=== PATIENT | female | born 1935 | race Caucasian/White ===

== ENCOUNTER 2016-11-23 02:58 | Emergency (ER) | payer MEDICARE, BC ==
[~2016-11-23] VITALS: Ht 157.5 cm; Wt 94.6 kg
[~2016-11-23 02:58] MED LIST: ASPI81TA82 PO; BIOT10004 PO; CALC500T19 PO; CEPH500C3 PO; COEN400C PO; FURO20TA PO; LORTA5 PO; MAGN400C2 PO; NEBI5 PO; NORV5TAB PO; OYST500T71 PO; POTA20IN3 PO; ROSU40 PO; VITA-83 PO
[2016-11-23 03:05] VITALS: BP 201/95; PULSE 56; RESP 18; TEMP 97.6; O2SAT 93
[2016-11-23 03:17] VITALS: BP 201/96; PULSE 62; RESP 18; TEMP 97.9; O2SAT 94
[2016-11-23] MEDS ORDERED: FURO1TAB62 PO (03:32)
[2016-11-23] MEDS ORDERED: ROSU5 PO (03:32)
[2016-11-23] MEDS ORDERED: BYST5TAB2 PO (03:32)
[2016-11-23] MEDS ORDERED: ASPI81CH CHEW (03:32)
[2016-11-23] MEDS ORDERED: POTA-163 PO (03:32)
[2016-11-23] MEDS ORDERED: AMLO5TAB2 PO (03:32)
[2016-11-23] MEDS ORDERED: METF500T PO (03:32)
--- NOTE | 2016-11-23 03:32 | PD ---
HPI Chief Complaint: Hypertension Time Seen by Provider: 03:13 Travel History International Travel<30 days: No Contact w/Intl Traveler<30days: No Traveled to known affect area: No History of Present Illness HPI The patient is an 81-year-old female that complains of an elevated blood pressure tonight. It is totally asymptomatic except for a mild discomfort in the back of her head. She denies any chest pain, shortness of breath, fever. She states tonight, before this happened, that she was drinking large amounts of Gatorade. She states she wanted to drink Gatorade because she wanted to increase her potassium. Because she was drinking large amounts of fluids, she did have frequency and urgency. She denies specifically any dysuria. She denies any cough or abdominal pain. She is a Medicare a and B patient of Dr. Betito Hallman. PFSH Past Medical History Hx Anticoagulant Therapy: Yes Arthritis: Yes Blood Disorders: No Cancer: Yes (LEFT BREAST) Cardiovascular Problems: Yes High Cholesterol: Yes Chemotherapy: Yes () Cerebrovascular Accident: Yes (TIA) Diabetes: Yes Patient Takes Glucophage: Yes Diminished Hearing: No Endocrine: No Gastrointestinal Disorders: No GERD: No Genitourinary: Yes Hypertension: Yes Immune Disorder: No Neurologic: Yes Psychiatric: No Tetanus Vaccination: < 5 Years Influenza Vaccination: Yes ?: Not Menopausal: Yes : 3 Para: 1 Miscarriage: 2 Past Surgical History Abdominal Surgery: No Cardiac Surgery: Yes Coronary Stent: No Ear Surgery: No Endocrine Surgery: No Eye Surgery: Yes (CATARACTS) Genitourinary Surgery: No Gynecologic Surgery: No Joint Replacement: Yes (bilat knee) Mastectomy: Yes (left) Neurologic Surgery: Yes (TIA,04) Oral Surgery: Yes (CAPS) Tonsillectomy: Yes Other Surgery: Yes Social History Alcohol Use: No Tobacco Use: No Substance Use: No Allergies-Medications (Allergen,Severity, Reaction): Coded Allergies: No Known Allergies (Verified , 11/23/16) Reported Meds & Prescriptions Reported Meds & Active Scripts Active Reported Metformin (Metformin HCl) 500 Mg Tab 500 Mg PO DAILY With a meal Aspirin 81 Mg Chew 81 Mg CHEW DAILY Crestor (Rosuvastatin Calcium) 5 Mg Tab 5 Mg PO EVERY OTHER DAY Lasix (Furosemide) 20 Mg Tab 20 Mg PO DAILY Potassium Chloride ER (Potassium Chloride) 20 Meq Tab 20 Meq PO DAILY Bystolic (Nebivolol) 5 Mg Tab 5 Mg PO DAILY Amlodipine (Amlodipine Besylate) 5 Mg Tab 5 Mg PO DAILY Review of Systems Except as stated in HPI: all other systems reviewed are Neg Physical Exam Narrative GENERAL: The patient is alert, oriented 3 in no apparent distress. Her vital signs show blood pressure 201/95 but otherwise normal. SKIN: Focused skin assessment warm/dry. HEAD: Atraumatic. Normocephalic. EYES: Pupils equal and round. No scleral icterus. No injection or drainage. ENT: No nasal bleeding or discharge. Mucous membranes pink and moist. NECK: Trachea midline. No JVD. CARDIOVASCULAR: Regular rate and rhythm. No murmur appreciated. RESPIRATORY: No accessory muscle use. Clear to auscultation. Breath sounds equal bilaterally. GASTROINTESTINAL: Abdomen soft, non-tender, nondistended. Hepatic and splenic margins not palpable. MUSCULOSKELETAL: No obvious deformities. No clubbing. No cyanosis. No edema. NEUROLOGICAL: Awake and alert. No obvious cranial nerve deficits. Motor grossly within normal limits. Normal speech. PSYCHIATRIC: Appropriate mood and affect; insight and judgment normal. Data Data Last Documented VS Vital Signs Date Time Temp Pulse Resp B/P (MAP) Pulse Ox O2 Delivery O2 Flow Rate FiO2 11/23/16 04:38 60 18 170/88 (115) 93 Room Air 11/23/16 03:17 97.9 Orders Orders Electrocardiogram (11/23/16 03:21) Complete Blood Count With Diff (11/23/16 03:21) Comprehensive Metabolic Panel (11/23/16 03:21) Urinalysis - C+S If Indicated (11/23/16 03:21) Chest, Pa & Lat (11/23/16 03:21) Labs Laboratory Tests Test 11/23/16 03:45 11/23/16 04:00 Urine Color YELLOW Urine Turbidity CLEAR Urine pH 6.0 Urine Specific [place] 1.008 Urine Protein NEG mg/dL Urine Glucose (UA) NEG mg/dL Urine Ketones NEG mg/dL Urine Occult Blood NEG Urine Nitrite NEG Urine Bilirubin NEG Urine Leukocyte Esterase NEG Urine RBC 0-2 /hpf Urine WBC 0-2 /hpf Urine Squamous Epithelial Cells 6-8 /hpf Urine Bacteria NONE /hpf Microscopic Urinalysis Comment CULT NOT INDICATED White Blood Count 7.4 TH/MM3 Red Blood Count 4.55 MIL/MM3 Hemoglobin 14.1 GM/DL Hematocrit 41.9 % Mean Corpuscular Volume 92.1 FL Mean Corpuscular Hemoglobin 31.1 PG Mean Corpuscular Hemoglobin Concent 33.8 % Red Cell Distribution Width 12.6 % Platelet Count 205 TH/MM3 Mean Platelet Volume 7.9 FL Neutrophils (%) (Auto) 37.3 % Lymphocytes (%) (Auto) 45.9 % Monocytes (%) (Auto) 15.3 % Eosinophils (%) (Auto) 0.8 % Basophils (%) (Auto) 0.7 % Neutrophils # (Auto) 2.7 TH/MM3 Lymphocytes # (Auto) 3.3 TH/MM3 Monocytes # (Auto) 1.1 TH/MM3 Eosinophils # (Auto) 0.1 TH/MM3 Basophils # (Auto) 0.1 TH/MM3 CBC Comment DIFF FINAL Differential Comment Blood Urea Nitrogen 24 MG/DL Creatinine 0.97 MG/DL Random Glucose 92 MG/DL Total Protein 8.0 GM/DL Albumin 3.6 GM/DL Calcium Level 9.2 MG/DL Alkaline Phosphatase 63 U/L Aspartate Amino Transf (AST/SGOT) 33 U/L Alanine Aminotransferase (ALT/SGPT) 27 U/L Total Bilirubin 0.3 MG/DL Sodium Level 138 MEQ/L Potassium Level 3.9 MEQ/L Chloride Level 102 MEQ/L Carbon Dioxide Level 26.6 MEQ/L Anion Gap 9 MEQ/L Estimat Glomerular Filtration Rate 55 ML/MIN MDM Medical Decision Making Medical Screen Exam Complete: Yes Emergency Medical Condition: Yes Medical Record Reviewed: Yes Interpretation(s) EKG shows a sinus bradycardia no acute ST elevation or depression is present. The CBC is normal. The urinalysis is normal and culture is not indicated. The complete metabolic profile shows a BUN of 24, GFR 55 but is otherwise normal. The chest x-ray shows no acute change. There is stable elevation of the right hemidiaphragm and minimal atelectasis/scarring in the left lingula. Lungs are otherwise clear. There is a left mastectomy with axillary maximino dissection. Differential Diagnosis Acute coronary syndrome, electrolyte disorder, anemia, congestive heart failure- unlikely, cardiac dysrhythmia, hypertension poor control, hypertensive urgency Narrative Course It is now 44 7 AM and the blood pressure is 170/88. The blood pressure came down to this number with out any medications at all other than the indication she took at home. Diagnosis Primary Impression: Hypertension, poor control Additional Instructions: Follow-up with Dr. Hallman Thursday regarding your blood pressure. He should be the one to adjust her medication. Disposition: DISCHARGE HOME Condition: Stable Kael Matt MD Nov 23, 2016 03:32
[2016-11-23 04:06] LABS: AUTOMATED NEUTROPHIL # 2.7 TH/MM3 (1.8-7.7); BASOPHIL # 0.1 TH/MM3 (0-0.2); BASOPHIL % 0.7 % (0.0-2.0); EOSINOPHIL # 0.1 TH/MM3 (0-0.4); EOSINOPHIL % 0.8 % (0.0-4.0); HEMATOCRIT 41.9 % (35.0-46.0); HEMO FLAGS DIFF FINAL; LYMPH % 45.9 % (9.0-44.0); LYMPHOCYTE # 3.3 TH/MM3 (1.0-4.8); MEAN CELL VOLUME 92.1 FL (80.0-100.0); MEAN CORPUSCULAR HEMOGLOBIN 31.1 PG (27.0-34.0); MEAN CORPUSCULAR HGB CONC 33.8 % (32.0-36.0); MONO % 15.3 % (0.0-8.0); NEUT % 37.3 % (16.0-70.0); PLATELET COUNT 205 TH/MM3 (150-450); RED BLOOD COUNT 4.55 MIL/MM3 (4.00-5.30); RED CELL DISTRIBUTION WIDTH 12.6 % (11.6-17.2); WHITE BLOOD COUNT 7.4 TH/MM3 (4.0-11.0)
[2016-11-23 04:07] LABS: BLOOD, URINE NEG (NEG); GLUCOSE,URINE NEG (NEG); KETONE, URINE NEG (NEG); NITRITE,URINE NEG (NEG)
[2016-11-23 04:12] LABS: URINE COLOR YELLOW (YELLW/STRAW)
[2016-11-23 04:13] LABS: COMMENT (UR) CULT NOT INDICATED; CULTURE IF INDICATED CULT NOT INDICATED; RBC, URINE 0-2 /hpf (0-3); WBC, URINE 0-2 /hpf (0-5)
[2016-11-23 04:14] LABS: CHLORIDE 102 MEQ/L (98-107); POTASSIUM 3.9 MEQ/L (3.5-5.1); SODIUM (NA) 138 MEQ/L (136-145)
--- NOTE | 2016-11-23 04:16 | RADRPT ---
EXAM DATE/TIME: 11/23/2016 03:30 [facility] COMPARISON: CHEST PA & LAT, October 01, 2011, 13:22. INDICATIONS : Palpitations. MEDICAL HISTORY : Carcinoma, breast. Hypercholesterolemia. Hypertension. TIA, Diabetes, Arthritis SURGICAL HISTORY : Total knee replacement, left. Total knee replacement, right. Mastectomy, left. Tonsillectomy, Catarac t surgery ENCOUNTER: Initial ACUITY: 1 day PAIN SCORE: 3/10 LOCATION: Bilateral chest FINDINGS: PA and lateral views of the chest demonstrate stable elevation of the right hemidiaphragm. Minimal at electatic changes or scarring in the left lingula. Lungs are otherwise clear. Heart size is normal de generative spurring of the dorsal spine with mild levoscoliosis of the same. Left mastectomy with axi llary maximino dissection. CONCLUSION: 1. Stable elevation of the right hemidiaphragm. Minimal atelectasis/scarring in the left lingula. Toan gs otherwise clear. 2. Left mastectomy with axillary maximino dissection. Alban Olmos MD on November 23, 2016 at 4:12 Board Certified Radiologist. This report was verified electronically.
[2016-11-23 04:18] LABS: ANION GAP 9 MEQ/L (5-15); BICARBONATE 26.6 MEQ/L (21.0-32.0); BLOOD UREA NITROGEN 24 MG/DL (7-18)
[2016-11-23 04:21] LABS: ALT (GPT) 27 U/L (10-53); AST (GOT) 33 U/L (15-37); GLOMERULAR FILTRATION RATE 55 ML/MIN (>89)
[2016-11-23 04:22] LABS: TOTAL BILIRUBIN ADULT 0.3 MG/DL (0.2-1.0)
[2016-11-23 04:23] LABS: ALKALINE PHOSPHATASE 63 U/L (45-117)
[2016-11-23 04:38] VITALS: BP 170/88; PULSE 60; RESP 18; O2SAT 93
[2016-11-23] MEDS ORDERED: hydrALAZINE HCL 20 MG/ML VIAL IV PUSH ONE (05:00)
[2016-11-23 05:17] VITALS: BP 141/73; PULSE 55; RESP 18; O2SAT 93
--- NOTE | 2016-11-23 12:46 | EKG ---
Date Performed: 11/23/2016 Time Performed: 03:33:28 PTAGE: 81 years EKG: SINUS BRADYCARDIA WITH SINUS ARRHYTHMIA ABNORMAL ECG PREVIOUS TRACING : 10/01/2011 13.08 No significant change from previous tracing noted. DOCTOR: Gilbert Agarwal Interpretating Date/Time 11/23/2016 12:46:00
== END 2016-11-23 05:25 | disposition home or self-care (01) ==
LOC: PHED 02:58
DX: I10 Essential (primary) hypertension (principal); E11.9 Type 2 diabetes mellitus without complications; Z79.84 Long term (current) use of oral hypoglycemic drugs
CPT/HCPCS: 71020; 80053; 81001; 85025; 93005; 96374; 99285; J0360

== ENCOUNTER 2016-12-12 10:13 | Observation (INO) | payer MEDICARE, BC ==
[~2016-12-12] VITALS: Ht 160 cm; Wt 92.0 kg
[2016-12-12] VITALS (7 sets, daily range): BP systolic 103–174; BP diastolic 60–81; PULSE 50–68; RESP 16–21; TEMP 97.5–98.2; O2SAT 93–96
[~2016-12-12 10:13] MED LIST changes: +AMLO5TAB2 PO; +ASPI81CH CHEW; -ASPI81TA82 PO; -BIOT10004 PO; +BYST5TAB2 PO; -CALC500T19 PO; -CEPH500C3 PO; -COEN400C PO; +FURO1TAB62 PO; -FURO20TA PO; -LORTA5 PO; -MAGN400C2 PO; +METF500T PO; -NEBI5 PO; -NORV5TAB PO; -OYST500T71 PO; +POTA-163 PO; -POTA20IN3 PO; -ROSU40 PO; +ROSU5 PO; -VITA-83 PO
[2016-12-12] MEDS ORDERED: IOHEXOL 350 MG/ML 10 ML VIAL (for RAD DIAG) IVCONTRAST ONE (10:14)
--- NOTE | 2016-12-12 10:37 | PD ---
HPI Chief Complaint: Syncope/Near-Syncope Time Seen by Provider: 10:37 Travel History International Travel<30 days: No Contact w/Intl Traveler<30days: No Traveled to known affect area: No History of Present Illness HPI 81-year-old female came to the emergency room with history of near syncopal episode this morning. Patient's daughter is here with her. Patient has not been feeling too good for past 3-4 days as per her. She was taken to [facility] emergency room few days ago for hypertension where her medications and doses were adjusted. She was discharged home and she has not been doing too great since then as per the daughter. For the past 3-4 days she has been complaining that she is having some choking sensation around her neck. During those occasions daughter says she that she noticed her color was wagoner. Today they were [place] the [place] when she started getting lightheaded and felt like she was going to pass out. She did not have any chest pain. Vital signs were stable although patient says that she usually runs in blood pressure more than 150s and here her blood pressure was 110 to 130s. Patient says that she did not completely pass out. FOR[facility]LY [facility] Past Medical History Narrative Medical List of her past medical, surgical, social and family history is reviewed from the nursing note. Hx Anticoagulant Therapy: Yes Arthritis: Yes Blood Disorders: No Cancer: Yes (LEFT BREAST) Cardiovascular Problems: Yes High Cholesterol: Yes Chemotherapy: Yes () Cerebrovascular Accident: Yes (TIA) Diabetes: Yes Patient Takes Glucophage: No Diminished Hearing: No Endocrine: No Gastrointestinal Disorders: No GERD: No Genitourinary: Yes Hypertension: Yes Immune Disorder: No Neurologic: Yes Psychiatric: No Influenza Vaccination: Yes Menopausal: Yes : 3 Para: 1 Miscarriage: 2 Past Surgical History Abdominal Surgery: No Cardiac Surgery: Yes Coronary Stent: No Ear Surgery: No Endocrine Surgery: No Eye Surgery: Yes (CATARACTS) Genitourinary Surgery: No Gynecologic Surgery: No Joint Replacement: Yes (bilat knee) Mastectomy: Yes (left) Neurologic Surgery: Yes (TIA,04) Oral Surgery: Yes (CAPS) Tonsillectomy: Yes Other Surgery: Yes Social History Alcohol Use: Yes (special occasions) Tobacco Use: No Substance Use: No Allergies-Medications (Allergen,Severity, Reaction): Coded Allergies: No Known Allergies (Verified , 12/12/16) Comments No known drug allergies. Reported Meds & Prescriptions Reported Meds & Active Scripts Active Reported Aspirin 81 Mg Chew 81 Mg CHEW DAILY Potassium Chloride ER (Potassium Chloride) 20 Meq Tab 20 Meq PO DAILY Bystolic (Nebivolol) 5 Mg Tab 5 Mg PO DAILY Amlodipine (Amlodipine Besylate) 5 Mg Tab 5 Mg PO DAILY Narrative Medication List of her home medications reviewed from the nursing note. Review of Systems Except as stated in HPI: all other systems reviewed are Neg Physical Exam Narrative GENERAL: Awake, alert, obese, anxious SKIN: Focused skin assessment warm/dry. HEAD: Atraumatic. Normocephalic. EYES: Pupils equal and round. No scleral icterus. No injection or drainage. ENT: No nasal bleeding or discharge. Dry mucous membrane NECK: Trachea midline. No JVD. CARDIOVASCULAR: Regular rate and rhythm. No murmur appreciated. RESPIRATORY: No accessory muscle use. Clear to auscultation. Breath sounds equal bilaterally. GASTROINTESTINAL: Abdomen soft, non-tender, nondistended. Hepatic and splenic margins not palpable. MUSCULOSKELETAL: No obvious deformities. No clubbing. No cyanosis. No edema. NEUROLOGICAL: Awake and alert. No obvious cranial nerve deficits. Motor grossly within normal limits. Normal speech. PSYCHIATRIC: Appropriate mood and affect; insight and judgment normal. Data Data Last Documented VS Vital Signs Date Time Temp Pulse Resp B/P (MAP) Pulse Ox O2 Delivery O2 Flow Rate FiO2 12/12/16 11:04 55 155/65 (95) 53 125/68 (87) 63 110/62 (78) 12/12/16 10:59 93 Room Air 12/12/16 10:16 98.0 16 Orders Orders Electrocardiogram (12/12/16 10:56) Basic Metabolic Panel (Bmp) (12/12/16 10:56) Ckmb (Isoenzyme) Profile (12/12/16 10:56) Complete Blood Count With Diff (12/12/16 10:56) Magnesium (Mg) (12/12/16 10:56) Prothrombin Time / Inr (Pt) (12/12/16 10:56) Act Partial Throm Time (Ptt) (12/12/16 10:56) Troponin I (12/12/16 10:56) Chest, Single Ap (12/12/16 10:56) Ecg Monitoring (12/12/16 10:56) Bilateral Bp Monitoring (12/12/16 10:56) Iv Access Insert/Monitor (12/12/16 10:56) Oximetry (12/12/16 10:56) Oxygen Administration (12/12/16 10:56) Sodium Chloride 0.9% Flush (Ns Flush) (12/12/16 11:00) Sodium Chlorid 0.9% 500 Ml Inj (Ns 500 M (12/12/16 11:30) Ct Pulmonary Angiogram (12/12/16 ) Iohexol 350 Inj (Omnipaque 350 Inj) (12/12/16 10:14) B-Type Natriuretic Peptide (12/12/16 14:26) Us Carotid Arteries Comp Bilat (12/12/16 ) Admit Order (Ed Use Only) (12/12/16 14:33) Place In Observation (12/12/16 ) Vital Signs (Adult) Q4H (12/12/16 14:28) Activity Oob With Assistance (12/12/16 14:28) Bedside Glucose KIAN.CSUGAR (12/12/16 14:28) Medic Technician / Telemetry .CONTINUOUS (12/12/16 14:28) Intake + Output KIAN.QSHIFT (12/12/16 14:28) Diet 1800 Ada Cons Carb (12/12/16 Dinner) Sodium Chloride 0.9% Flush (Ns Flush) (12/12/16 14:30) Sodium Chloride 0.9% Flush (Ns Flush) (12/12/16 21:00) Basic Metabolic Panel (Bmp) (12/13/16 06:00) Pt Request For Service (12/12/16 14:28) Case Management Consult (12/12/16 14:28) Scd Bilateral/Knee High KIAN.BID (12/12/16 14:28) Naloxone Inj (Narcan Inj) (12/12/16 14:30) Magnesium Hydroxide Liq (Milk Of Magnesi (12/12/16 14:30) Sennosides (Senokot) (12/12/16 14:30) Bisacodyl Supp (Dulcolax Supp) (12/12/16 14:30) Lactulose Liq (Lactulose Liq) (12/12/16 14:30) Echo 2d Comp With Doppler (12/13/16 ) Labs Laboratory Tests Test 12/12/16 10:40 12/12/16 12:00 White Blood Count 7.9 TH/MM3 Red Blood Count 3.85 MIL/MM3 Hemoglobin 12.4 GM/DL Hematocrit 36.6 % Mean Corpuscular Volume 94.9 FL Mean Corpuscular Hemoglobin 32.2 PG Mean Corpuscular Hemoglobin Concent 34.0 % Red Cell Distribution Width 13.8 % Platelet Count 227 TH/MM3 Mean Platelet Volume 8.7 FL Neutrophils (%) (Auto) 59.3 % Lymphocytes (%) (Auto) 29.7 % Monocytes (%) (Auto) 10.4 % Eosinophils (%) (Auto) 0.1 % Basophils (%) (Auto) 0.5 % Neutrophils # (Auto) 4.7 TH/MM3 Lymphocytes # (Auto) 2.3 TH/MM3 Monocytes # (Auto) 0.8 TH/MM3 Eosinophils # (Auto) 0.0 TH/MM3 Basophils # (Auto) 0.0 TH/MM3 CBC Comment DIFF FINAL Differential Comment Prothrombin Time 10.6 SEC Prothromb Time International Ratio 1.0 RATIO Activated Partial Thromboplast Time 23.1 SEC Blood Urea Nitrogen 57 MG/DL Creatinine 0.99 MG/DL Random Glucose 90 MG/DL Calcium Level 8.9 MG/DL Magnesium Level 2.5 MG/DL Sodium Level 136 MEQ/L Potassium Level 5.0 MEQ/L Chloride Level 104 MEQ/L Carbon Dioxide Level 25.5 MEQ/L Anion Gap 7 MEQ/L Estimat Glomerular Filtration Rate 54 ML/MIN Total Creatine Kinase 52 U/L Troponin I LESS THAN 0.02 NG/ML MDM Medical Decision Making Medical Screen Exam Complete: Yes Emergency Medical Condition: Yes Medical Record Reviewed: Yes Interpretation(s) Twelve-lead EKG was reviewed by me. Normal sinus rhythm, normal axis, bradycardia, nonspecific ST-T wave changes. Heart rate of 56 bpm. Differential Diagnosis PE, cardiac arrhythmia, ACS, non-STEMI Narrative Course 2:15 PM blood test results of back and within acceptable limits. CT scan is negative for PE. I discussed with the patient and the daughter that I'm concerned in terms of any dysrhythmias that could have caused this. Her BUN is elevated and I have ordered IV fluid bolus. Patient will require to be admitted for at least 24 hour observation. They are in agreement. Procedures EKG Prior to Arrival: No Diagnosis Primary Impression: Near syncope Additional Impression: Dehydration Admitting Information Admitting Physician Requests: Observation Sydney Martinez MD Dec 12, 2016 10:37
[2016-12-12] MEDS ORDERED: SODIUM CHLORIDE 0.9% FLUSH 10 ML FLUSH IVF PRN (11:00)
[2016-12-12 11:23] LABS: AUTOMATED NEUTROPHIL # 4.7 TH/MM3 (1.8-7.7); BASOPHIL % 0.5 % (0.0-2.0); EOSINOPHIL % 0.1 % (0.0-4.0); HEMATOCRIT 36.6 % (35.0-46.0); HEMO FLAGS DIFF FINAL; LYMPH % 29.7 % (9.0-44.0); LYMPHOCYTE # 2.3 TH/MM3 (1.0-4.8); MEAN CELL VOLUME 94.9 FL (80.0-100.0); MEAN CORPUSCULAR HEMOGLOBIN 32.2 PG (27.0-34.0); MONO % 10.4 % (0.0-8.0); NEUT % 59.3 % (16.0-70.0); PLATELET COUNT 227 TH/MM3 (150-450); RED BLOOD COUNT 3.85 MIL/MM3 (4.00-5.30); RED CELL DISTRIBUTION WIDTH 13.8 % (11.6-17.2); WHITE BLOOD COUNT 7.9 TH/MM3 (4.0-11.0)
[2016-12-12] MEDS ORDERED: SODIUM CHLORID 0.9% 500 ML INJ 500 ML IV ONE (11:30)
--- NOTE | 2016-12-12 11:35 | RADRPT ---
EXAM DATE/TIME: 12/12/2016 11:29 [facility] COMPARISON: CHEST PA & LAT, November 23, 2016, 3:30. INDICATIONS : Dizziness and shortness of breath. MEDICAL HISTORY : Carcinoma, breast. Hypercholesterolemia. Hypertension. TIA, Diabetes,Arthritis. SURGICAL HISTORY : Total knee replacement, left. Total knee replacement, right. Mastectomy, left.Tonsillectomy, Cataract surgery ENCOUNTER: Initial ACUITY: 1 day PAIN SCORE: 0/10 LOCATION: Bilateral chest FINDINGS: Stable elevation of the right hemidiaphragm. No new focal pleural or brachial opacities. Cardiac medi astinal contours are stable. Remainder of exam is unchanged. CONCLUSION: 1. Stable elevation of the right hemidiaphragm without acute abnormality or significant interval hummel ge. Nikko Reyes MD on December 12, 2016 at 11:32 Board Certified Radiologist. This report was verified electronically.
[2016-12-12 12:24] LABS: PROTHROMBIN TIME - PATIENT 10.6 SEC (9.8-11.6)
[2016-12-12 12:25] LABS: APTT (PATIENT) 23.1 SEC (24.3-30.1)
[2016-12-12 12:52] LABS: ANION GAP 7 MEQ/L (5-15); BICARBONATE 25.5 MEQ/L (21.0-32.0); BLOOD UREA NITROGEN 57 MG/DL (7-18); CHLORIDE 104 MEQ/L (98-107); GLOMERULAR FILTRATION RATE 54 ML/MIN (>89); MAGNESIUM 2.5 MG/DL (1.5-2.5); SODIUM (NA) 136 MEQ/L (136-145)
[2016-12-12 12:53] LABS: CREATINE KINASE 52 U/L (26-192)
--- NOTE | 2016-12-12 13:51 | RADRPT ---
EXAM DATE/TIME: 12/12/2016 13:13 [facility] COMPARISON: No previous studies available for comparison. INDICATIONS : Short of breath, embolism. IV CONTRAST: 55 cc Omnipaque 350 (iohexol) IV RADIATION DOSE: 17.01 CTDIvol (mGy) MEDICAL HISTORY : Hypertension. Diabetes mellitus type 2. SURGICAL HISTORY : Mastectomy, left. ENCOUNTER: Initial ACUITY: 1 week PAIN SCALE: 3/10 LOCATION: Bilateral chest TECHNIQUE: Volumetric scanning of the chest was performed using a pulmonary embolism protocol MIP images were re constructed. Using automated exposure control and adjustment of the mA and/or kV according to patien t size, radiation dose was kept as low as reasonably achievable to obtain optimal diagnostic quality images. DICOM format image data is available electronically for review and comparison. Follow-up recommendations for detected pulmonary nodules are based at a minimum on nodule size and pa tient risk factors according to Fleischner Society Guidelines. FINDINGS: PULMONARY ARTERIES: No filling defects are seen in the pulmonary arteries through the segmental level. LUNGS: Slight mosaic attenuation in the upper lobes bilaterally. Mild groundglass opacities in the lower lob es with linear focal consolidation in the right lung base and elevated right hemidiaphragm. PLEURAE: There is no pleural thickening or pleural effusion. MEDIASTINUM: Moderate coronary artery calcifications. No significant pericardial effusion. No significant medi astinal or hilar adenopathy. MUSCULOSKELETAL: Degenerative spondylosis of the thoracic spine. MISCELLANEOUS: Multiple gallstones in otherwise grossly unremarkable gallbladder. Remainder of the visualized upper abdomen is grossly unremarkable. CONCLUSION: 1. No CT evidence for pulmonary artery embolism through the segmental level. 2. Elevation the right hemidiaphragm with right lower lobe atelectasis/scarring. 3. Mosaic attenuation, particularly in the upper lobes bilaterally. This may reflect air trapping, po sitive fluid balance or small vessel disease. 4. Moderate coronary artery calcifications. 5. Cholelithiasis. Nikko Reyes MD on December 12, 2016 at 13:44 Board Certified Radiologist. This report was verified electronically.
[2016-12-12] MEDS ORDERED: BISACODYL 10 MG SUPP RECTAL PRN (14:30)
[2016-12-12] MEDS ORDERED: LACTULOSE SYRUP 20 GM/30 ML CUP PO PRN (14:30)
[2016-12-12] MEDS ORDERED: MAGNESIUM HYDROXIDE SUSP 30 ML CUP PO PRN (14:30)
[2016-12-12] MEDS ORDERED: SENNOSIDES 8.6 MG TAB PO PRN (14:30)
[2016-12-12] MEDS ORDERED: SODIUM CHLORIDE 0.9% FLUSH 10 ML FLUSH IV FLUSH PRN (14:30)
[2016-12-12] MEDS ORDERED: NALOXONE HCL 0.4 MG/ML AMP IV PUSH PRN (14:30)
--- NOTE | 2016-12-12 15:22 | HHI.HP ---
[facility] Service [facility] Primary Care Physician Betito Hallman MD Admission Diagnosis near-syncope Diagnoses: Chief Complaint: near syncope Travel History International Travel<30 Days: No Contact w/Intl Traveler <30 Da: No Traveled to Known Affected Are: No History of Present Illness Written by Mirela Weller, acting as scribe for Dr. Arguelles on 12/12/16 at 15: 21. 81-year-old female with history of hypertension, hyperlipidemia, TIA, left breast cancer s/p mastectomy/chemo, presents with a near syncopal episode today. The patient reports she presented to the ED 11/23/16 with headaches and hypertension, she was instructed to start taking her amlodipine in the morning and Bystolic at nighttime, otherwise no adjustment of dosages. Now over the past 2 weeks she just hasn't felt well with poor energy, lightheadedness, and weakness. Daughter is at bedside who assists with the history. The daughter reports the patient has looked wagoner over the past few days, with increased weakness, unable to stand for long periods of time which is unusual for her. She also reports the patient has been complaining of an intermittent tightness in her throat described as a choking sensation over the past few months. Denies any chest pains but does report some shortness of breath. The patient reports today she felt extremely lightheaded and diaphoretic. The patient felt like she was going to pass out but did not lose consciousness. Symptoms relieved by sitting back down. Denies any headache, visual changes, unilateral numbness/ tingling/weakness. Denies any recent abdominal pain, nausea/vomiting, diarrhea or constipation. Her ward clerk is Dr. Jama. Her last nuclear stress test was 6 years ago, reportedly normal. Of note, the daughter reports the patient has been taking her blood pressure every day at home, mostly SBP in the 170s. Upon arrival to the ED today, her blood pressure was 103/60. The patient has no other medical complaints to report at this time. Review of Systems Except as stated in HPI: all other systems reviewed are Neg Past Family Social History Past Medical History hypertension hyperlipidemia TIA left breast cancer s/p mastectomy/chemotherapy 1995 Past Surgical History Bilateral total knee arthroplasties Left breast mastectomy Cataract surgery Tonsillectomy Dental surgeries Reported Medications Aspirin 81 Mg Chew 81 Mg CHEW DAILY Potassium Chloride ER (Potassium Chloride) 20 Meq Tab 20 Meq PO DAILY Bystolic (Nebivolol) 5 Mg Tab 5 Mg PO DAILY Amlodipine (Amlodipine Besylate) 5 Mg Tab 5 Mg PO DAILY Allergies: Coded Allergies: No Known Allergies (Verified , 12/12/16) Active Ordered Medications Current Medications Medications (Trade) Dose Ordered Sig/Ofelia Route Start Time Stop Time Status Last Admin (NS Flush) 2 ml UNSCH PRN IV FLUSH 12/12/16 14:30 (NS Flush) 2 ml BID IV FLUSH 12/12/16 21:00 (Narcan Inj) 0.4 mg UNSCH PRN IV PUSH 12/12/16 14:30 (Milk Of Magnesia Liq) 30 ml Q12H PRN PO 12/12/16 14:30 (Senokot) 17.2 mg Q12H PRN PO 12/12/16 14:30 (Dulcolax Supp) 10 mg DAILY PRN RECTAL 12/12/16 14:30 (Lactulose Liq) 30 ml DAILY PRN PO 12/12/16 14:30 (Aspirin Chew) 81 mg DAILY CHEW 12/13/16 09:00 Family History Mother with stroke age 76 Father with lung disease Social History Quit smoking tobacco in 1969 Drinks alcohol rarely, only on special occasions Denies any illicit drug use Physical Exam Vital Signs Vital Signs Date Time Temp Pulse Resp B/P (MAP) Pulse Ox O2 Delivery O2 Flow Rate FiO2 12/12/16 14:37 53 21 171/81 (111) 95 Room Air 12/12/16 11:04 55 155/65 (95) 53 125/68 (87) 63 110/62 (78) 12/12/16 10:59 93 Room Air 12/12/16 10:16 98.0 68 16 103/60 (74) 96 Physical Exam GENERAL: Well-nourished, well-developed pleasant elderly female patient in [facility]. SKIN: Warm and dry. No rash. HEAD: Normocephalic. Atraumatic. EYES: Pupils equal and round. No scleral icterus. No injection or drainage. ENT: No nasal bleeding or discharge. Mucous membranes pink and moist. NECK: Supple. Trachea midline. CARDIOVASCULAR: Regular rate and rhythm. S1, S2 noted. No murmur appreciated. RESPIRATORY: No accessory muscle use. Clear to auscultation. Breath sounds equal bilaterally. GASTROINTESTINAL: Abdomen soft, non-tender, nondistended. Normoactive bowel sounds x4. MUSCULOSKELETAL: No obvious deformities. Extremities without clubbing, cyanosis , or edema. NEUROLOGICAL: Awake and alert. No obvious cranial nerve deficits. Motor grossly within normal limits. 5/5 muscle strength in bilateral upper and lower extremities. Normal speech. PSYCHIATRIC: Appropriate mood and affect; insight and judgment normal. Laboratory Laboratory Tests Test 12/12/16 10:40 12/12/16 12:00 12/12/16 14:44 White Blood Count 7.9 Red Blood Count 3.85 Hemoglobin 12.4 Hematocrit 36.6 Mean Corpuscular Volume 94.9 Mean Corpuscular Hemoglobin 32.2 Mean Corpuscular Hemoglobin Concent 34.0 Red Cell Distribution Width 13.8 Platelet Count 227 Mean Platelet Volume 8.7 Neutrophils (%) (Auto) 59.3 Lymphocytes (%) (Auto) 29.7 Monocytes (%) (Auto) 10.4 Eosinophils (%) (Auto) 0.1 Basophils (%) (Auto) 0.5 Neutrophils # (Auto) 4.7 Lymphocytes # (Auto) 2.3 Monocytes # (Auto) 0.8 Eosinophils # (Auto) 0.0 Basophils # (Auto) 0.0 CBC Comment DIFF FINAL Differential Comment Prothrombin Time 10.6 Prothromb Time International Ratio 1.0 Activated Partial Thromboplast Time 23.1 Blood Urea Nitrogen 57 Creatinine 0.99 Random Glucose 90 Calcium Level 8.9 Magnesium Level 2.5 Sodium Level 136 Potassium Level 5.0 Chloride Level 104 Carbon Dioxide Level 25.5 Anion Gap 7 Estimat Glomerular Filtration Rate 54 Total Creatine Kinase 52 Troponin I LESS THAN 0.02 Result Diagram: 12/12/16 1040 12/12/16 1200 Imaging Last Impressions Chest X-Ray 12/12/16 1056 Signed Impressions: Service Date/Time: Monday, December 12, 2016 11:29 - CONCLUSION: 1. Stable elevation of the right hemidiaphragm without acute abnormality or significant interval change. Nikko Reyes MD CT Angiography 12/12/16 0000 Signed Impressions: Service Date/Time: Monday, December 12, 2016 13:13 - CONCLUSION: 1. No CT evidence for pulmonary artery embolism through the segmental level. 2. Elevation the right hemidiaphragm with right lower lobe atelectasis/scarring. 3. Mosaic attenuation, particularly in the upper lobes bilaterally. This may reflect air trapping, positive fluid balance or small vessel disease. 4. Moderate coronary artery calcifications. 5. Cholelithiasis. MD [place] Sebastian VTE Risk Assessment Caprini VTE Risk Assessment: Mod/High Risk (score >= 2) Caprini Risk Assessment Model Point Value = 1 Point Value = 2 Point Value = 3 Point Value = 5 Age 41-60 Minor surgery BMI > 25 kg/m2 Swollen legs Varicose veins or History of unexplained or recurrent spontaneous Oral contraceptives or hormone replacement Sepsis (< 1 month) Serious lung disease, including pneumonia (< 1 month) Abnormal pulmonary function Acute myocardial infarction Congestive heart failure (< 1 month) History of inflammatory bowel disease Medical patient at bed rest Age 61-74 Arthroscopic surgery Major open surgery (> 45 min) Laparoscopic surgery (> 45 min) Malignancy Confined to bed (> 72 hours) Immobilizing plaster cast Central venous access Age >= 75 History of VTE Family history of VTE Factor V Leiden Prothrombin [id number] Lupus anticoagulant Anticardiolipin antibodies Elevated serum homocysteine Heparin-induced thrombocytopenia Other congenital or acquired thrombophilia Stroke (< 1 month) Elective arthroplasty Hip, pelvis, or leg fracture Acute spinal cord injury (< 1 month) Prophylaxis Regimen Total Risk Factor Score Risk Level Prophylaxis Regimen 0-1 Low Early ambulation 2 Moderate Order ONE of the following: *Sequential Compression Device (SCD) *Heparin 5000 units SQ BID 3-4 Higher Order ONE of the following medications: *Heparin 5000 units SQ TID *Enoxaparin/Lovenox 40 mg SQ daily (WT < 150 kg, CrCl > 30 mL/min) *Enoxaparin/Lovenox 30 mg SQ daily (WT < 150 kg, CrCl > 10-29 mL/min) *Enoxaparin/Lovenox 30 mg SQ BID (WT < 150 kg, CrCl > 30 mL/min) AND/OR *Sequential Compression Device (SCD) 5 or more Highest Order ONE of the following medications: *Heparin 5000 units SQ TID (Preferred with Epidurals) *Enoxaparin/Lovenox 40 mg SQ daily (WT < 150 kg, CrCl > 30 mL/min) *Enoxaparin/Lovenox 30 mg SQ daily (WT < 150 kg, CrCl > 10-29 mL/min) *Enoxaparin/Lovenox 30 mg SQ BID (WT < 150 kg, CrCl > 30 mL/min) AND *Sequential Compression Device (SCD) Assessment and Plan Problem List: (1) Near syncope ICD Code: R55 - Syncope and collapse Status: Acute Assessment and Plan 81-year-old female with history of hypertension, hyperlipidemia, TIA, left breast cancer s/p mastectomy/chemo, presents with a near syncopal episode today. Near Syncope: suspect secondary to orthostatic hypotension; rule out other etiologies such as ACS, PE, arrhythmia, or cardiomyopathy. CXR images reviewed, no acute findings. CT-PA images reviewed, no PE; shows elevation of right hemidiaphragm with RLL atelectasis/scarring; mosaic attenuation in upper lobes bilaterally, may reflect air trapping, positive fluid balance, or small vessel disease; moderate coronary artery calcifications; cholelithiasis. -Orthostatics positive, SBP dropped from 155 to 110 upon standing, continue to monitor, apply mary hose, counseled on slow transitions -S/p IVF bolus in the ED -Rule out ACS with serial cardiac enzymes and EKGs -Check carotid U/S -Check echocardiogram -Monitor on telemetry -PT consult -consult patient's ward clerk Dr. Jama Hypertension: with orthostatic hypotension as above. Currently on amlodipine 5mg in am and bystolic 5mg hs -holding patient's antihypertensives for now -monitor BP, adjust antihypertensives as needed -1640hrs: patient very worried about holding bystolic tonight as her SBP now in 170s, will restart only bystolic tonight DVT Prophylaxis: teds/SCDs Discussed Condition With Patient, Patient's Daughter, Michelle Attending Statement This note was transcribed by ant Weller. I, Dr. Sheng Arguelles personally performed the history, physical exam, and medical decision making; and confirmed the accuracy of the information in the transcribed note. Authenticated by Dr. Sheng Arguelles on 12/12/16 at 22:42. Mirela Weller PA-C Dec 12, 2016 15:22 Sheng Arguelles MD Dec 12, 2016 22:42
--- NOTE | 2016-12-12 16:15 | RADRPT ---
EXAM DATE/TIME: 12/12/2016 14:50 [facility] COMPARISON: No previous studies available for comparison. INDICATIONS : Syncope. MEDICAL HISTORY : Hypercholesterolemia. TIA. Anticogulant therapy. Hypertension. Arthritis. Diabetes. SURGICAL HISTORY : Tonsillectomy. Cataracts. Oral surgery. Neurologic surgery. Cardiac surgery. Left Mastectomy. Bi lateral total knee replacements. ENCOUNTER: Initial ACUITY: 1 day PAIN SCORE: 0/10 LOCATION: Bilateral neck PEAK SYSTOLIC VELOCITIES (cm/sec): ICA/CCA RATIO: Right: 1.5 Left: 0.9 ICA: Right: 77 Left: 72 CCA: Right: 52 Left: 77 ECA: Right: 63 Left: 61 VERTEBRAL: Right: 47 antegrade Left: 29 antegrade Elevated flow velocities and ICA/CCA ratios have been found to correlate with increased degrees of vessel stenosis, calculated as percentage of diameter relative to a normal segment of distal ICA/CCA FINDINGS: RIGHT CAROTID: Mild mixed plaque in the carotid bulb without significant flow-limiting stenosis. LEFT CAROTID: Mild mixed plaque in the carotid bulb without significant flow-limiting stenosis. VERTEBRAL ARTERIES: Antegrade flow is seen in both vertebral arteries. MISCELLANEOUS: None. CONCLUSION: 1. Mild mixed plaque in the carotid bulbs without significant flow-limiting stenosis. 2. Incidental note of high carotid bifurcations. 3. Antegrade vertebral artery flow bilaterally. Nikko Reyes MD on December 12, 2016 at 16:12 Board Certified Radiologist. This report was verified electronically.
--- NOTE | 2016-12-12 17:42 | MB ---
cc: YVROSE LANE MD DATE OF CONSULTATION: 12/13/16 REASON FOR CONSULTATION: Ms. Carroll is an 81 year old white female patient of Dr. Jama DICTATION STOPPED HERE. Yvrose Lane MD OQ/ /4:52 PM /5:37 PM
[2016-12-12] MEDS: LOSARTAN 25 MG TAB PO SCH (17:48)
[2016-12-12] MEDS: HYDROCHLOROTHIAZIDE 25 MG TAB PO SCH (17:48)
--- NOTE | 2016-12-12 17:50 | MB ---
cc: JOSUE CLARKE MD DATE OF CONSULTATION 12/12/16 An 81-year-old white female patient of Dr. Jama with history of hypertension, dyslipidemia, TIA and breast cancer. She presented with episodes of presyncope. She was dizzy and lightheaded today. She has had severe hypertension recently and blood pressure was up to 225 systolic. The patient was seen in the emergency room and her medications were adjusted a couple of weeks ago. She has had mild dyspnea on exertion and choking sensation in her throat. She has not had any chest pain or abdominal pain. Blood pressure is mostly in the 170s and 180s. Her blood pressure in the emergency room on arrival was on 103/60. PAST MEDICAL HISTORY 1. Hypertension 2. Dyslipidemia 3. TIA 4. Left breast cancer status post mastectomy and chemotherapy in 1995 5. History of knee surgery, 6. Cataract surgery, 7. Tonsillectomy MEDICATIONS 1. Aspirin. 2. Potassium 3. Bystolic. 4. Amlodipine. ALLERGIES None. SOCIAL HISTORY The patient does not smoke. She drinks alcohol rarely on special occasions. FAMILY HISTORY Positive heart disease in her mother and her brother. REVIEW OF SYSTEMS Otherwise negative. PHYSICAL EXAMINATION VITAL SIGNS: Blood pressure 174/78, pulse 52 and regular. HEENT: Negative. 2+ carotid upstraokes. No bruits. LUNGS: Clear. HEART: No murmur, gallop or rub. ABDOMEN: Spft, no bruits. EXTREMITIES: With mild edema. 1+ distal pulses NEUROLOGIC: Grossly nonfocal. CARDIOLOGY STUDIES EKG was reviewed and showed some mild sinus bradycardia with normal axis intervals, no acute changes. LABORATORY DATA Hemoglobin 12.4, potassium 5.0, creatinine 1.0, CK and troponin normal, magnesium 2.5. DIAGNOSES 1. Presyncope. 2. Severe hypertension 3. Dyslipidemia. 4. History of transient ischemic attack DISPOSITION Ms. Carroll will be monitored on telemetry. We will adjust her medications for blood pressure control. We will discontinue potassium and add Losartan and hydrochlorothiazide. We will continue . We will obtain echocardiogram to evaluate her left ventricular function. I recommend to monitor her renal function and electrolytes. She will follow up with Dr. Jama, her primary measurement operator, in his office after discharge. MD SPENCER Franco /4:58 PM /5:39 PM
[2016-12-12 18:54] LABS: CREATINE KINASE 49 U/L (26-192)
[2016-12-12] MEDS: NEBIVOLOL 5 MG TAB PO SCH (21:12)
[2016-12-12] MEDS: SODIUM CHLORIDE 0.9% FLUSH 10 ML FLUSH IV FLUSH SCH (21:13)
[2016-12-13] VITALS (10 sets, daily range): BP systolic 80–144; BP diastolic 39–66; PULSE 48–59; RESP 16–24; TEMP 96.5–98.1; O2SAT 93–95
[2016-12-13 01:55] LABS: CREATINE KINASE 50 U/L (26-192)
--- NOTE | 2016-12-13 05:07 | EKG ---
Date Performed: 12/12/2016 Time Performed: 18:18:55 PTAGE: 81 years EKG: SINUS BRADYCARDIA WITH OCCASIONAL SUPRAVENTRICULAR PREMATURE COMPLEXES NONSPECIFIC T-WAVE A BNORMALITY BORDERLINE ECG PREVIOUS TRACING : 12/12/2016 10.42 DOCTOR: Dheeraj Jean Interpretating Date/Time 12/13/2016 05:03:49
--- NOTE | 2016-12-13 05:24 | EKG ---
Date Performed: 12/12/2016 Time Performed: 10:42:03 PTAGE: 81 years EKG: SINUS BRADYCARDIA BORDERLINE ECG PREVIOUS TRACING : 11/23/2016 03.33 DOCTOR: Dheeraj Jean Interpretating Date/Time 12/13/2016 05:15:41
[2016-12-13 08:11] LABS: BICARBONATE 25.8 MEQ/L (21.0-32.0)
[2016-12-13] MEDS: SODIUM CHLORIDE 0.9% FLUSH 10 ML FLUSH IV FLUSH SCH ×2 (09:00→21:00)
[2016-12-13] MEDS: HYDROCHLOROTHIAZIDE 25 MG TAB PO SCH (09:00)
[2016-12-13] MEDS: ASPIRIN 81 MG CHEW TAB CHEW SCH (09:43)
[2016-12-13] MEDS: LOSARTAN 25 MG TAB PO SCH (09:44)
[2016-12-13] MEDS ORDERED: ACETAMINOPHEN 325 MG TAB PO PRN (11:45)
--- NOTE | 2016-12-13 13:58 | HHI.PR ---
Subjective Remarks Follow up near syncopal episode and hypertension. Patient seen and examined in room today. Daughter at bedside. Patient states that her dizziness has resolved. Denies any shortness of breath. Tolerating PO intake. Denies any recent fever, chills, cough, shortness of breath, ab pain, n/v/d or dysuria. Patient is ambulating well without significant weakness. Objective Vitals Vital Signs Date Time Temp Pulse Resp B/P (MAP) Pulse Ox O2 Delivery O2 Flow Rate FiO2 12/13/16 12:44 97.6 50 18 131/62 (85) 95 12/13/16 10:57 52 117/56 (76) 121/59 (79) 80/39 (53) 12/13/16 07:17 97.6 51 20 93/51 (65) 93 12/13/16 04:15 53 12/13/16 04:13 97.4 54 16 144/63 (90) 93 12/13/16 00:05 48 12/12/16 23:48 97.6 50 20 142/62 (88) 93 12/12/16 20:10 53 12/12/16 19:41 98.2 61 18 135/63 (87) 93 12/12/16 16:06 97.5 52 18 174/78 (110) 95 12/12/16 15:56 12/12/16 14:37 53 21 171/81 (111) 95 Room Air I/O 12/12/16 12/12/16 12/12/16 12/13/16 12/13/16 12/13/16 07:00 15:00 23:00 07:00 15:00 23:00 Intake Total 500 ml 480 ml Balance 500 ml 480 ml Intake Oral 480 ml IV Total 500 ml # Voids 2 3 # Bowel Movements 1 Result Diagram: 12/12/16 1040 12/13/16 0635 Imaging Last Impressions Chest X-Ray 12/12/16 1056 Signed Impressions: Service Date/Time: Monday, December 12, 2016 11:29 - CONCLUSION: 1. Stable elevation of the right hemidiaphragm without acute abnormality or significant interval change. Nikko Reyes MD Carotid Artery Ultrasound 12/12/16 0000 Signed Impressions: Service Date/Time: Monday, December 12, 2016 14:50 - CONCLUSION: 1. Mild mixed plaque in the carotid bulbs without significant flow-limiting stenosis. 2. Incidental note of high carotid bifurcations. 3. Antegrade vertebral artery flow bilaterally. Nikko Reyes MD CT Angiography 12/12/16 0000 Signed Impressions: Service Date/Time: Monday, December 12, 2016 13:13 - CONCLUSION: 1. No CT evidence for pulmonary artery embolism through the segmental level. 2. Elevation the right hemidiaphragm with right lower lobe atelectasis/scarring. 3. Mosaic attenuation, particularly in the upper lobes bilaterally. This may reflect air trapping, positive fluid balance or small vessel disease. 4. Moderate coronary artery calcifications. 5. Cholelithiasis. Nikko Reyes MD Objective Remarks GENERAL: Well-nourished, well-developed pleasant elderly female patient in [facility]. SKIN: Warm and dry. No rash. HEENT: Normocephalic. Atraumatic. Pupils equal and round. No scleral icterus. No injection or drainage. No nasal bleeding or discharge. Mucous membranes pink and moist. NECK: Supple. Trachea midline. CARDIOVASCULAR: Regular rate and rhythm. S1, S2 noted. No murmur appreciated. RESPIRATORY: No accessory muscle use. Clear to auscultation. Breath sounds equal bilaterally. GASTROINTESTINAL: Abdomen soft, non-tender, nondistended. Normoactive bowel sounds x4. MUSCULOSKELETAL: No obvious deformities. Extremities without clubbing, cyanosis , or edema. NEUROLOGICAL: Awake and alert. No obvious cranial nerve deficits. Motor grossly within normal limits. 5/5 muscle strength in bilateral upper and lower extremities. Normal speech. PSYCHIATRIC: Appropriate mood and affect; insight and judgment normal. A/P Problem List: (1) Near syncope ICD Code: R55 - Syncope and collapse Status: Acute (2) Hypertension ICD Code: I10 - Essential (primary) hypertension Assessment and Plan 81-year-old female with history of hypertension, hyperlipidemia, TIA, left breast cancer s/p mastectomy/chemo, presents with a near syncopal episode today. Near Syncope: suspect secondary to orthostatic hypotension; rule out other etiologies such as ACS, PE, arrhythmia, or cardiomyopathy. CXR images reviewed, no acute findings. CT-PA images reviewed, no PE; shows elevation of right hemidiaphragm with RLL atelectasis/scarring; mosaic attenuation in upper lobes bilaterally, may reflect air trapping, positive fluid balance, or small vessel disease; moderate coronary artery calcifications; cholelithiasis. -Orthostatics positive, SBP dropped from 155 to 110 upon standing, and rechecked today dropped from 117 to 80. Continue to monitor, apply mary hose, counseled on slow transitions. - Placed on gentle hydration. Awaiting ECHO results. Will wait on starting Midodrine, continue to monitor. - Serial cardiac enzymes and EKGs flat and unremarkable. - Carotid ultrasound reviewed showing mild mixed plaque without significant flow-limiting stenosis. - Awaiting ECHO results. - Continue to monitor on telemetry - PT consult, appreciate recommendations. - Dr. Lane following patient, appreciate recommendations. Hypertension: with orthostatic hypotension as above. Currently on amlodipine 5mg in am and bystolic 5mg hs. -holding patient's antihypertensives for now -monitor BP, adjust antihypertensives as needed DVT Prophylaxis: teds/SCDs Halie Desai Dec 13, 2016 13:58
--- NOTE | 2016-12-13 14:22 | EKG ---
Date Performed: 12/13/2016 Time Performed: 00:53:51 PTAGE: 81 years EKG: SINUS BRADYCARDIA NONSPECIFIC T-WAVE ABNORMALITY BORDERLINE ECG PREVIOUS TRACING : 12/12/2016 18.18 DOCTOR: Dheeraj Jean Interpretating Date/Time 12/13/2016 14:16:48
[2016-12-13] MEDS ORDERED: SODIUM CHLOR 0.9% 1000 ML INJ 1,000 ML IV SCH (16:00)
--- NOTE | 2016-12-13 16:35 | PD.CARD.PN ---
Subjective Subjective Remarks No CP or SOB, mild dizziness, positive orthostatics Objective Medications Administered Medications Medications (Trade) Dose Ordered Sig/Ofelia Route PRN Reason Start Time Stop Time Status Last Admin Dose Admin Sodium Chloride (NS Flush) 2 ml BID IV FLUSH 12/12/16 21:00 12/13/16 09:00 Aspirin (Aspirin Chew) 81 mg DAILY CHEW 12/13/16 09:00 12/13/16 09:43 Nebivolol (Bystolic) 5 mg HS PO 12/12/16 21:00 Future Hold 12/12/16 21:12 Losartan Potassium (Cozaar) 25 mg DAILY PO 12/12/16 17:00 Future Hold 12/12/16 17:48 Hydrochlorothiazide (Hydrodiuril) 25 mg DAILY PO 12/12/16 17:00 Future Hold 12/12/16 17:48 Vital Signs / I&O Vital Signs Date Time Temp Pulse Resp B/P (MAP) Pulse Ox O2 Delivery O2 Flow Rate FiO2 12/13/16 12:44 97.6 50 18 131/62 (85) 95 12/13/16 10:57 52 117/56 (76) 121/59 (79) 80/39 (53) 12/13/16 07:17 97.6 51 20 93/51 (65) 93 12/13/16 04:15 53 12/13/16 04:13 97.4 54 16 144/63 (90) 93 12/13/16 00:05 48 12/12/16 23:48 97.6 50 20 142/62 (88) 93 12/12/16 20:10 53 12/12/16 19:41 98.2 61 18 135/63 (87) 93 I/O 12/12/16 12/12/16 12/12/16 12/13/16 12/13/16 12/13/16 07:00 15:00 23:00 07:00 15:00 23:00 Intake Total 500 ml 480 ml Balance 500 ml 480 ml Intake Oral 480 ml IV Total 500 ml # Voids 2 3 # Bowel Movements 1 Physical Exam GENERAL: In NAD. SKIN: Warm and dry. HEAD: Normocephalic. EYES: No scleral icterus. No injection or drainage. NECK: Supple, trachea midline. No JVD or lymphadenopathy. CARDIOVASCULAR: Regular rate and rhythm without murmurs, gallops, or rubs. RESPIRATORY: Breath sounds equal bilaterally. No accessory muscle use. GASTROINTESTINAL: Abdomen soft, non-tender, nondistended. MUSCULOSKELETAL: No cyanosis, or edema. Laboratory Laboratory Tests Test 12/12/16 17:35 12/13/16 01:06 12/13/16 06:35 Total Creatine Kinase 49 U/L 50 U/L Troponin I LESS THAN 0.02 NG/ML LESS THAN 0.02 NG/ML Blood Urea Nitrogen 40 MG/DL Creatinine 0.91 MG/DL Random Glucose 97 MG/DL Calcium Level 8.9 MG/DL Sodium Level 139 MEQ/L Potassium Level 4.0 MEQ/L Chloride Level 104 MEQ/L Carbon Dioxide Level 25.8 MEQ/L Anion Gap 9 MEQ/L Estimat Glomerular Filtration Rate 59 ML/MIN Assessment and Plan Problem List: (1) Near syncope ICD Codes: R55 - Syncope and collapse Status: Acute (2) Hypertension ICD Codes: I10 - Essential (primary) hypertension (3) Dehydration ICD Codes: E86.0 - Dehydration Status: Acute Assessment and Plan BP much better controlled. Mildly hypotensive. Continue hydration. Continue and adjust antihypertensive tx. F/u w Dr. Jama as outpatient. Yvrose Lane MD Dec 13, 2016 16:35
--- NOTE | 2016-12-13 17:40 | ECHRPT ---
Indication: heart failure CONCLUSIONS Normal left ventricular size. Wall thickness is normal. The left ventricular systolic function is low normal with an estimated ejection fraction in the rang e of 50- 55%. Trace mitral valve regurgitation. Aortic valve sclerosis is present. Mild aortic valve regurgitation. There is mild to moderate tricuspid valve regurgitation. There is estimated mild pulmonary hypertension present ( 40mmHg). Trivial pulmonary valve regurgitation. BP: 110 / 62 HR: 63 Rhythm: MEASUREMENTS (Male / Female) Normal Values Technical Quality:Good 2D ECHO LV Diastolic Diameter PLAX 4.8 cm 4.2 - 5.9 / 3.9 - 5.3 cm LV Systolic Diameter PLAX 3.7 cm IVS Diastolic Thickness 1.2 cm 0.6 - 1.0 / 0.6 - 0.9 cm LVPW Diastolic Thickness 0.7 cm 0.6 - 1.0 / 0.6 - 0.9 cm LV Relative Wall Thickness 0.4 RV Internal Dim ED PLAX 2.2 cm LA Systolic Diameter LX 3.6 cm 3.0 - 4.0 / 2.7 - 3.8 cm M-MODE Aortic Root Diameter MM 3.0 cm AV Cusp Separation MM 1.7 cm DOPPLER MR Peak Velocity 407.0 cm/s MR Peak Gradient 66.3 mmHg Mitral E Point Velocity 51.8 cm/s Mitral A Point Velocity 82.9 cm/s Mitral E to A Ratio 0.6 TR Peak Velocity 297.0 cm/s TR Peak Gradient 35.3 mmHg Right Atrial Pressure 5.0 mmHg Pulmonary Artery Systolic Pressu 40.3 mmHg Right Ventricular Systolic Press 40.3 mmHg FINDINGS LEFT VENTRICLE Normal left ventricular size. Wall thickness is normal. The left ventricular systolic function is low normal with an estimated ejection fraction in the rang e of 50- 55%. RIGHT VENTRICLE Normal right ventricular size and systolic function. LEFT ATRIUM The left atrial size is normal. RIGHT ATRIUM The right atrial size is normal. ATRIAL SEPTUM Normal atrial septal thickness without atrial level shunting by limited color doppler interrogation. AORTA The aortic root and proximal ascending aorta are normal in size on limited imaging. MITRAL VALVE Trace mitral valve regurgitation. AORTIC VALVE Aortic valve sclerosis is present. Mild aortic valve regurgitation. TRICUSPID VALVE There is mild to moderate tricuspid valve regurgitation. There is estimated mild pulmonary hypertension present ( 40mmHg). PULMONARY VALVE Trivial pulmonary valve regurgitation. VESSELS The inferior vena cava is normal in size. PERICARDIUM No pericardial effusion. Yvrose Lane MD, FACC (Electronically Signed) Final Date:13 December 2016 17:39
[2016-12-14] VITALS (14 sets, daily range): BP systolic 90–173; BP diastolic 52–79; PULSE 50–69; RESP 16–19; TEMP 96.2–98.8; O2SAT 90–97
[2016-12-14] MEDS: SODIUM CHLORIDE 0.9% FLUSH 10 ML FLUSH IV FLUSH SCH ×2 (09:00→21:25)
[2016-12-14] MEDS: ASPIRIN 81 MG CHEW TAB CHEW SCH (09:39)
--- NOTE | 2016-12-14 10:31 | HHI.PR ---
Subjective Remarks Follow up near syncopal episode and hypertension. Patient seen and examined in room today. Sitting up in bed eating breakfast, daughter at bedside. Orthostatic BPs positive today, patient denies any associated symptoms including dizziness, headache, lightheadedness, vertigo, nausea or vomiting. Tolerating PO intake, denies any abdominal pain, nausea, or vomiting. Spoke at length to patient and daughter regarding orthostatic hypotension, all questions answered to the best of my ability. Objective Vitals Vital Signs Date Time Temp Pulse Resp B/P (MAP) Pulse Ox O2 Delivery O2 Flow Rate FiO2 12/14/16 08:51 97.6 55 16 172/79 (110) 97 122/69 (86) 90/52 (65) 12/14/16 08:16 54 12/14/16 07:42 97.6 51 16 129/61 (83) 94 12/14/16 04:16 64 12/14/16 04:00 97.9 56 18 153/65 (94) 94 12/14/16 00:05 57 12/14/16 00:00 96.2 53 18 125/61 (82) 90 12/13/16 20:37 96.5 54 18 132/60 (84) 94 12/13/16 20:05 59 12/13/16 17:49 98.1 52 24 136/66 (89) 94 12/13/16 12:44 97.6 50 18 131/62 (85) 95 12/13/16 10:57 52 117/56 (76) 121/59 (79) 80/39 (53) I/O 12/13/16 12/13/16 12/13/16 12/14/16 12/14/16 12/14/16 07:00 15:00 23:00 07:00 15:00 23:00 Intake Total 480 ml 720 ml Balance 480 ml 720 ml Intake Oral 480 ml 720 ml # Voids 3 7 # Bowel Movements 1 Result Diagram: 12/12/16 1040 12/13/16 0635 Imaging Last Impressions Chest X-Ray 12/12/16 1056 Signed Impressions: Service Date/Time: Monday, December 12, 2016 11:29 - CONCLUSION: 1. Stable elevation of the right hemidiaphragm without acute abnormality or significant interval change. Nikko Reyes MD Carotid Artery Ultrasound 12/12/16 Signed Impressions: Service Date/Time: Monday, December 12, 2016 14:50 - CONCLUSION: 1. Mild mixed plaque in the carotid bulbs without significant flow-limiting stenosis. 2. Incidental note of high carotid bifurcations. 3. Antegrade vertebral artery flow bilaterally. Nikko Reyes MD CT Angiography 12/12/16 Signed Impressions: Service Date/Time: Monday, December 12, 2016 13:13 - CONCLUSION: 1. No CT evidence for pulmonary artery embolism through the segmental level. 2. Elevation the right hemidiaphragm with right lower lobe atelectasis/scarring. 3. Mosaic attenuation, particularly in the upper lobes bilaterally. This may reflect air trapping, positive fluid balance or small vessel disease. 4. Moderate coronary artery calcifications. 5. Cholelithiasis. Nikko Reyes MD Objective Remarks GENERAL: Well-nourished, well-developed pleasant elderly female patient in [facility]. SKIN: Warm and dry. No rash. HEENT: Normocephalic. Atraumatic. Pupils equal and round. No scleral icterus. No injection or drainage. No nasal bleeding or discharge. Mucous membranes pink and moist. NECK: Supple. Trachea midline. CARDIOVASCULAR: Regular rate and rhythm. S1, S2 noted. No murmur appreciated. RESPIRATORY: No accessory muscle use. Clear to auscultation. Breath sounds equal bilaterally. GASTROINTESTINAL: Abdomen soft, non-tender, nondistended. Normoactive bowel sounds x4. MUSCULOSKELETAL: No obvious deformities. Extremities without clubbing, cyanosis , or edema. NEUROLOGICAL: Awake and alert. No obvious cranial nerve deficits. Motor grossly within normal limits. 5/5 muscle strength in bilateral upper and lower extremities. Normal speech. PSYCHIATRIC: Appropriate mood and affect; insight and judgment normal. A/P Problem List: (1) Near syncope ICD Code: R55 - Syncope and collapse Status: Acute (2) Hypertension ICD Code: I10 - Essential (primary) hypertension Assessment and Plan 81-year-old female with history of hypertension, hyperlipidemia, TIA, left breast cancer s/p mastectomy/chemo, presents with a near syncopal episode today. Near Syncope: suspect secondary to orthostatic hypotension; rule out other etiologies such as ACS, PE, arrhythmia, or cardiomyopathy. CXR images reviewed, no acute findings. CT-PA images reviewed, no PE; shows elevation of right hemidiaphragm with RLL atelectasis/scarring; mosaic attenuation in upper lobes bilaterally, may reflect air trapping, positive fluid balance, or small vessel disease; moderate coronary artery calcifications; cholelithiasis. -Orthostatics positive, SBP dropped from 172 to 90 upon standing. Patient has not been on any BP medications for >24 hours. Will recheck at 1400 and if asymptomatic will allow permissive hypertension. Continue to monitor, counseled on slow transitions. - Continue hydration. ECHO reviewed EF 50-55%. Will wait on starting Midodrine due to patient being asymptomatic, continue to monitor. - Serial cardiac enzymes and EKGs flat and unremarkable. - Carotid ultrasound reviewed showing mild mixed plaque without significant flow-limiting stenosis. - Continue to monitor on telemetry - Continue working with PT. - Dr. Lane following patient, appreciate recommendations. Hypertension: with orthostatic hypotension as above. -holding patient's antihypertensives for now -monitor BP, adjust antihypertensives as needed DVT Prophylaxis: teds/SCDs 1630 - Dr. Lane in to see patient and recommendations are to keep her one more night and restart her Bystolic and monitor BP overnight. Will hold discharge and have Dr. Jama see patient in am. If stable will DC with recommendations to follow up with Dr. Jama in the outpatient setting. Problem Qualifiers (1) Hypertension: Qualified Codes: I10 - Essential (primary) hypertension LloydHaliemeño LOWE Dec 14, 2016 10:31
--- NOTE | 2016-12-14 15:59 | PD.CARD.PN ---
Subjective Subjective Remarks No CP, SOB, or dizziness Objective Medications Administered Medications Medications (Trade) Dose Ordered Sig/Ofelia Route PRN Reason Start Time Stop Time Status Last Admin Dose Admin Sodium Chloride (NS Flush) 2 ml BID IV FLUSH 12/12/16 21:00 12/13/16 09:00 Aspirin (Aspirin Chew) 81 mg DAILY CHEW 12/13/16 09:00 12/14/16 09:39 Nebivolol (Bystolic) 5 mg HS PO 12/12/16 21:00 Future Hold 12/12/16 21:12 Losartan Potassium (Cozaar) 25 mg DAILY PO 12/12/16 17:00 Future Hold 12/12/16 17:48 Hydrochlorothiazide (Hydrodiuril) 25 mg DAILY PO 12/12/16 17:00 Future Hold 12/12/16 17:48 Sodium Chloride 1,000 ml @ 42 mls/hr [id number] IV 12/13/16 16:00 12/13/16 16:35 Vital Signs / I&O Vital Signs Date Time Temp Pulse Resp B/P (MAP) Pulse Ox O2 Delivery O2 Flow Rate FiO2 12/14/16 14:10 97.6 53 16 150/69 (96) 95 148/68 (94) 143/69 (93) 12/14/16 11:19 97.4 50 16 141/71 (94) 93 12/14/16 08:51 97.6 55 16 172/79 (110) 97 122/69 (86) 90/52 (65) 12/14/16 08:16 54 12/14/16 07:42 97.6 51 16 129/61 (83) 94 12/14/16 04:16 64 12/14/16 04:00 97.9 56 18 153/65 (94) 94 12/14/16 00:05 57 12/14/16 00:00 96.2 53 18 125/61 (82) 90 12/13/16 20:37 96.5 54 18 132/60 (84) 94 12/13/16 20:05 59 12/13/16 17:49 98.1 52 24 136/66 (89) 94 I/O 12/13/16 12/13/16 12/13/16 12/14/16 12/14/16 12/14/16 07:00 15:00 23:00 07:00 15:00 23:00 Intake Total 480 ml 720 ml Balance 480 ml 720 ml Intake Oral 480 ml 720 ml # Voids 3 7 # Bowel Movements 1 Physical Exam GENERAL: In NAD. SKIN: Warm and dry. HEAD: Normocephalic. EYES: No scleral icterus. No injection or drainage. NECK: Supple, trachea midline. No JVD or lymphadenopathy. CARDIOVASCULAR: Regular rate and rhythm without murmurs, gallops, or rubs. RESPIRATORY: Breath sounds equal bilaterally. No accessory muscle use. GASTROINTESTINAL: Abdomen soft, non-tender, nondistended. MUSCULOSKELETAL: No cyanosis, or edema. Assessment and Plan Problem List: (1) Near syncope ICD Codes: R55 - Syncope and collapse Status: Acute (2) Hypertension ICD Codes: I10 - Essential (primary) hypertension (3) Dehydration ICD Codes: E86.0 - Dehydration Status: Acute Assessment and Plan BP normal off all meds. I recommend to restart her previous antihypertensive tx. DC home. F/u w Dr. Jama as outpatient shortly after discharge. Problem Qualifiers (1) Hypertension: Qualified Codes: I10 - Essential (primary) hypertension Yvrose Lane MD Dec 14, 2016 15:59
[2016-12-14] MEDS: NEBIVOLOL 5 MG TAB PO SCH (21:25)
[2016-12-15] VITALS (9 sets, daily range): BP systolic 100–157; BP diastolic 50–74; PULSE 50–55; RESP 16–22; TEMP 98–98.5; O2SAT 92–95
--- NOTE | 2016-12-15 09:48 | HHI.PR ---
Subjective Remarks Follow up near syncopal episode and hypertension. Patient seen and examined in room, daughter at bedside. Patient denies any new acute complaints. Slept well. Does express some concern of BP dropping overnight due to dose of Bystolic. Denies any chest pain, palpitations, shortness of breath, cough, headache, abdominal pain, nausea, vomiting or diarrhea. Objective Vitals Vital Signs Date Time Temp Pulse Resp B/P (MAP) Pulse Ox O2 Delivery O2 Flow Rate FiO2 12/15/16 07:41 98.0 51 20 157/70 (99) 94 12/15/16 06:08 52 18 139/67 (91) 95 129/59 (82) 100/50 (67) 12/15/16 03:55 55 12/14/16 23:23 69 12/14/16 23:07 98.8 58 19 130/61 (84) 94 12/14/16 21:24 61 173/78 (109) 12/14/16 20:07 98.4 58 19 145/66 (92) 94 12/14/16 20:00 63 12/14/16 14:10 97.6 53 16 150/69 (96) 95 148/68 (94) 143/69 (93) 12/14/16 11:19 97.4 50 16 141/71 (94) 93 I/O 12/14/16 12/14/16 12/14/16 12/15/16 12/15/16 12/15/16 07:00 15:00 23:00 07:00 15:00 23:00 Intake Total 720 ml 240 ml Balance 720 ml 240 ml Intake Oral 720 ml 240 ml # Voids 7 Result Diagram: 12/12/16 1040 12/13/16 0635 Imaging Last Impressions Chest X-Ray 12/12/16 1056 Signed Impressions: Service Date/Time: Monday, December 12, 2016 11:29 - CONCLUSION: 1. Stable elevation of the right hemidiaphragm without acute abnormality or significant interval change. Nikko Reyes MD Carotid Artery Ultrasound 12/12/16 0000 Signed Impressions: Service Date/Time: Monday, December 12, 2016 14:50 - CONCLUSION: 1. Mild mixed plaque in the carotid bulbs without significant flow-limiting stenosis. 2. Incidental note of high carotid bifurcations. 3. Antegrade vertebral artery flow bilaterally. Nikko Reyes MD CT Angiography 12/12/16 0000 Signed Impressions: Service Date/Time: Monday, December 12, 2016 13:13 - CONCLUSION: 1. No CT evidence for pulmonary artery embolism through the segmental level. 2. Elevation the right hemidiaphragm with right lower lobe atelectasis/scarring. 3. Mosaic attenuation, particularly in the upper lobes bilaterally. This may reflect air trapping, positive fluid balance or small vessel disease. 4. Moderate coronary artery calcifications. 5. Cholelithiasis. Nikko Reyes MD Objective Remarks GENERAL: Well-nourished, well-developed pleasant elderly female patient in [facility]. SKIN: Warm and dry. No rash. HEENT: Normocephalic. Atraumatic. Pupils equal and round. No scleral icterus. No injection or drainage. No nasal bleeding or discharge. Mucous membranes pink and moist. NECK: Supple. Trachea midline. CARDIOVASCULAR: Regular rate and rhythm. S1, S2 noted. No murmur appreciated. RESPIRATORY: No accessory muscle use. Clear to auscultation. Breath sounds equal bilaterally. GASTROINTESTINAL: Abdomen soft, non-tender, nondistended. Normoactive bowel sounds x4. MUSCULOSKELETAL: No obvious deformities. Extremities without clubbing, cyanosis , or edema. NEUROLOGICAL: Awake and alert. No obvious cranial nerve deficits. Motor grossly within normal limits. 5/5 muscle strength in bilateral upper and lower extremities. Normal speech. PSYCHIATRIC: Appropriate mood and affect; insight and judgment normal. A/P Problem List: (1) Near syncope ICD Code: R55 - Syncope and collapse Status: Acute (2) Hypertension ICD Code: I10 - Essential (primary) hypertension Assessment and Plan 81-year-old female with history of hypertension, hyperlipidemia, TIA, left breast cancer s/p mastectomy/chemo, presents with a near syncopal episode today. Near Syncope: suspect secondary to orthostatic hypotension; rule out other etiologies such as ACS, PE, arrhythmia, or cardiomyopathy. CXR images reviewed, no acute findings. CT-PA images reviewed, no PE; shows elevation of right hemidiaphragm with RLL atelectasis/scarring; mosaic attenuation in upper lobes bilaterally, may reflect air trapping, positive fluid balance, or small vessel disease; moderate coronary artery calcifications; cholelithiasis. -Orthostatics positive, SBP dropped [id number] to 100 upon standing overnight. Patient was given Bystolic dose overnight. Will recheck at [address] Jama for further recommendations. Continue to monitor, counseled on slow transitions. - ECHO reviewed EF 50-55%. Will wait on starting Midodrine due to patient being asymptomatic, continue to monitor. - Serial cardiac enzymes and EKGs flat and unremarkable. - Carotid ultrasound reviewed showing mild mixed plaque without significant flow-limiting stenosis. - Continue to monitor on telemetry. - Continue working with PT. - Dr. Jama to see patient today, will await further recommendations on BP treatment and orthostatic hypotension. Hypertension: with orthostatic hypotension as above. -holding patient's antihypertensives for now. Nebivolol continued HS will await cardiology recs. -monitor BP, adjust antihypertensives as needed DVT Prophylaxis: teds/SCDs 1700: Discharge held. Dr. Jama has seen patient and ordered for a nuclear stress test in am. BP stable at this time. Will monitor overnight and reassess after stress test. If cleared by surgery will most likely discharge tomorrow if no ischemia seen. Problem Qualifiers (1) Hypertension: Qualified Codes: I10 - Essential (primary) hypertension Halie Desai Dec 15, 2016 09:48
[2016-12-15] MEDS: SODIUM CHLORIDE 0.9% FLUSH 10 ML FLUSH IV FLUSH SCH ×2 (09:57→20:32)
[2016-12-15] MEDS: ASPIRIN 81 MG CHEW TAB CHEW SCH (09:57)
--- NOTE | 2016-12-15 11:46 | PD.CARD.PN ---
Subjective Subjective Remarks The patient denies CP or SOB. Had low BP after Bystolic. HR as low as in the 40s. Orthoostatics positive. Admits to low sodium diet for past 3 months. The patient complaining of right jaw pain. (Shellie Perez) Objective Medications Current Medications Medications (Trade) Dose Ordered Sig/Ofelia Route Start Time Stop Time Status Last Admin (NS Flush) 2 ml UNSCH PRN IV FLUSH 12/12/16 14:30 (NS Flush) 2 ml BID IV FLUSH 12/12/16 21:00 12/15/16 09:57 (Narcan Inj) 0.4 mg UNSCH PRN IV PUSH 12/12/16 14:30 (Milk Of Magnesia Liq) 30 ml Q12H PRN PO 12/12/16 14:30 (Senokot) 17.2 mg Q12H PRN PO 12/12/16 14:30 (Dulcolax Supp) 10 mg DAILY PRN RECTAL 12/12/16 14:30 (Lactulose Liq) 30 ml DAILY PRN PO 12/12/16 14:30 (Aspirin Chew) 81 mg DAILY CHEW 12/13/16 09:00 12/15/16 09:57 (Bystolic) 5 mg HS PO 12/12/16 21:00 Future hold 12/14/16 21:25 (Cozaar) 25 mg DAILY PO 12/12/16 17:00 Future Hold 12/12/16 17:48 (Hydrodiuril) 25 mg DAILY PO 12/12/16 17:00 Future Hold 12/12/16 17:48 (Tylenol) 650 mg Q4H PRN PO 12/13/16 11:45 Vital Signs / I&O Vital Signs Date Time Temp Pulse Resp B/P (MAP) Pulse Ox O2 Delivery O2 Flow Rate FiO2 12/15/16 07:41 98.0 51 20 157/70 (99) 94 12/15/16 07:00 51 12/15/16 06:08 52 18 139/67 (91) 95 129/59 (82) 100/50 (67) 12/15/16 03:55 55 12/14/16 23:23 69 12/14/16 23:07 98.8 58 19 130/61 (84) 94 12/14/16 21:24 61 173/78 (109) 12/14/16 20:07 98.4 58 19 145/66 (92) 94 12/14/16 20:00 63 12/14/16 14:10 97.6 53 16 150/69 (96) 95 148/68 (94) 143/69 (93) I/O 12/14/16 12/14/16 12/14/16 12/15/16 12/15/16 12/15/16 07:00 15:00 23:00 07:00 15:00 23:00 Intake Total 720 ml 240 ml Balance 720 ml 240 ml Intake Oral 720 ml 240 ml # Voids 7 Physical Exam GENERAL: Overweight female, daughter bedside SKIN: Warm and dry. HEAD: Normocephalic. EYES: No scleral icterus. No injection or drainage. NECK: Supple, trachea midline. CARDIOVASCULAR: Regular rate and rhythm without murmurs, gallops, or rubs. Bilateral mastectomy RESPIRATORY: Breath sounds equal bilaterally. No accessory muscle use. GASTROINTESTINAL: Abdomen soft, non-tender, nondistended. MUSCULOSKELETAL: No cyanosis, or edema. BACK: Nontender without obvious deformity. No CVA tenderness. (Shellie Perez) Assessment and Plan Problem List: (1) Near syncope ICD Codes: R55 - Syncope and collapse Status: Acute (2) Hypertension ICD Codes: I10 - Essential (primary) hypertension (3) Dehydration ICD Codes: E86.0 - Dehydration Status: Acute (4) Jaw pain ICD Codes: R68.84 - Jaw pain Assessment and Plan We will complete nuclear stress test tomorrow morning. If negatives,she will be cleared for discharge. BP decreased after Bystolic 5 mg. She admits to low salt diet. Has witnessed apneas/nocturnal gasping. We will decrease Bystolic to 2.5 mg qhs and provide amlodipine 2.5 mg PRN for hypertension, take 1 tablet for SBP > 180 mmhg and take two tablets for SBP > 200 mmHg. . Encouraged to increased salt and hydration. Encouraged to continue to maintain a HR and BP log (Shellie Perez) Assessment and Plan The exam, history, and the medical decision-making described in the above note were completed with the assistance of the mid-level provider. I reviewed and agree with the findings presented. I attest that I had a [id number] encounter with the patient on the same day, and personally performed and documented my assessment and findings in the medical record.Now complaining of jaw pain and sob will do nuclear stress test to exclude CAD (Rashad Jama MD) Problem Qualifiers (1) Hypertension: Qualified Codes: I10 - Essential (primary) hypertension Shellie Perez Dec 15, 2016 11:45 Rashad Jama MD Dec 15, 2016 19:26
[2016-12-15] MEDS ORDERED: amLODIPine BESYLATE 5 MG TAB PO PRN (12:00)
[2016-12-15] MEDS ORDERED: PILL SPLITTER OTHER PRN (12:15)
--- NOTE | 2016-12-15 13:05 | HHI.DS ---
Discharge Summary Admission Date Dec 12, 2016 at 14:35 Discharge Date: Dec 15, 2016 Admitting Diagnosis near-syncope (1) Near syncope ICD Code: R55 - Syncope and collapse Status: Acute (2) Hypertension ICD Code: I10 - Essential (primary) hypertension Status: Acute Procedures see attached Brief History - From Admission 81-year-old female with history of hypertension, hyperlipidemia, TIA, left breast cancer s/p mastectomy/chemo, presents with a near syncopal episode today. The patient reports she presented to the ED 11/23/16 with headaches and hypertension, she was instructed to start taking her amlodipine in the morning and Bystolic at nighttime, otherwise no adjustment of dosages. Now over the past 2 weeks she just hasn't felt well with poor energy, lightheadedness, and weakness. Daughter is at bedside who assists with the history. The daughter reports the patient has looked wagoner over the past few days, with increased weakness, unable to stand for long periods of time which is unusual for her. She also reports the patient has been complaining of an intermittent tightness in her throat described as a choking sensation over the past few months. Denies any chest pains but does report some shortness of breath. The patient reports today she felt extremely lightheaded and diaphoretic. The patient felt like she was going to pass out but did not lose consciousness. Symptoms relieved by sitting back down. Denies any headache, visual changes, unilateral numbness/ tingling/weakness. Denies any recent abdominal pain, nausea/vomiting, diarrhea or constipation. Her band tier is Dr. Jama. Her last nuclear stress test was 6 years ago, reportedly normal. Of note, the daughter reports the patient has been taking her blood pressure every day at home, mostly SBP in the 170s. Upon arrival to the ED today, her blood pressure was 103/60. The patient has no other medical complaints to report at this time. CBC/BMP: 12/12/16 1040 12/13/16 0635 Significant Findings Laboratory Tests Test 12/12/16 14:44 12/12/16 17:35 10/7/17 01:06 12/13/16 06:35 Troponin I LESS THAN 0.02 NG/ML LESS THAN 0.02 NG/ML Blood Urea Nitrogen 40 MG/DL (7-18) Estimat Glomerular Filtration Rate 59 ML/MIN (>89) Imaging Last Impressions Chest X-Ray 12/12/16 1056 Signed Impressions: Service Date/Time: Monday, December 12, 2016 11:29 - CONCLUSION: 1. Stable elevation of the right hemidiaphragm without acute abnormality or significant interval change. Nikko Reyes MD Carotid Artery Ultrasound 12/12/16 0000 Signed Impressions: Service Date/Time: Monday, December 12, 2016 14:50 - CONCLUSION: 1. Mild mixed plaque in the carotid bulbs without significant flow-limiting stenosis. 2. Incidental note of high carotid bifurcations. 3. Antegrade vertebral artery flow bilaterally. Nikko Reyes MD CT Angiography 12/12/16 0000 Signed Impressions: Service Date/Time: Monday, December 12, 2016 13:13 - CONCLUSION: 1. No CT evidence for pulmonary artery embolism through the segmental level. 2. Elevation the right hemidiaphragm with right lower lobe atelectasis/scarring. 3. Mosaic attenuation, particularly in the upper lobes bilaterally. This may reflect air trapping, positive fluid balance or small vessel disease. 4. Moderate coronary artery calcifications. 5. Cholelithiasis. Nikko Reyes MD Hospital Course 81-year-old female with history of hypertension, hyperlipidemia, TIA, left breast cancer s/p mastectomy/chemo, presents with a near syncopal. The patient reports she presented to the ED 11/23/16 with headaches and hypertension, she was instructed to start taking her amlodipine in the morning and Bystolic at nighttime, otherwise no adjustment of dosages. Now over the past 2 weeks she just hasn't felt well with poor energy, lightheadedness, and weakness. Her last nuclear stress test was 6 years ago, reportedly normal. The daughter reports the patient has looked wagoner over the past few days, with increased weakness, unable to stand for long periods of time which is unusual for her. She also reports the patient has been complaining of an intermittent tightness in her throat described as a choking sensation over the past few months. Near Syncope suspect secondary to orthostatic hypotension. Other etiologies ruled out such as ACS, PE, arrhythmia, or cardiomyopathy. CXR images showing no acute findings. CT-PA images showing no PE; shows elevation of right hemidiaphragm with RLL atelectasis/scarring; mosaic attenuation in upper lobes bilaterally, may reflect air trapping, positive fluid balance, or small vessel disease; moderate coronary artery calcifications; cholelithiasis. Orthostatics positive during hospital stay. BP medications were subsequently held. Patient was asymptomatic entire hospital stay. Asif clakr applied and counseled on slow transitions. Was given IV bolus in ED and placed on gentle IV hydration. ECHO EF 50-55%. Serial cardiac enzymes and EKGs flat and unremarkable. Carotid ultrasound reviewed showing mild mixed plaque without significant flow- limiting stenosis. Dr. Jama ordered for a nuclear stress test. Results showing Pt Condition on Discharge: Good Discharge Disposition: Discharge Home Discharge Time: > 30 minutes Discharge Instructions DIET: Follow Instructions for: Heart Healthy Diet Speech Therapy-Diet Recommends: Regular Activities you can perform: Regular-No Restrictions Follow up Referrals: Cardiology - 2-3 Days PCP Follow-up - 2-3 Days New Medications: Amlodipine (Norvasc) 5 Mg Tab 2.5 MG PO DAILY PRN for hypertension for 30 Days, #30 TAB Nebivolol (Bystolic) 5 Mg Tab 2.5 MG PO HS for hypertension for 30 Days, #30 TAB Continued Medications: Aspirin (Aspirin) 81 Mg Chew 81 MG CHEW DAILY, TAB 0 Refills Discontinued Medications: Amlodipine (Amlodipine) 5 Mg Tab 5 MG PO DAILY for Blood Pressure Management, #30 TAB 0 Refills Nebivolol (Bystolic) 5 Mg Tab 5 MG PO DAILY for Blood Pressure Management, #30 TAB 0 Refills Potassium Chloride ER (Potassium Chloride ER) 20 Meq Tab 20 MEQ PO DAILY for Electrolyte Replacement, #30 TAB 0 Refills Halie Desai Dec 15, 2016 13:05
[2016-12-15] MEDS ORDERED: BYST5TAB2 PO (13:06)
[2016-12-15] MEDS ORDERED: AMLO5 PO (13:06)
[2016-12-15] MEDS ORDERED: NEBIVOLOL 5 MG TAB PO SCH (21:00)
[2016-12-16] VITALS (8 sets, daily range): BP systolic 117–151; BP diastolic 58–72; PULSE 52–81; RESP 18–24; TEMP 97.9–98.4; O2SAT 91–97
--- NOTE | 2016-12-16 08:23 | HHI.PR ---
Subjective Remarks Follow-up for near syncope and orthostatic hypotension. Patient seen with daughter at bedside. The patient has no acute complaints today. She denies any further lightheadedness or dizziness. She denies any chest pain or shortness of breath. Going for stress test today. Objective Vitals Vital Signs Date Time Temp Pulse Resp B/P (MAP) Pulse Ox O2 Delivery O2 Flow Rate FiO2 12/16/16 07:26 97.9 63 20 125/60 (81) 94 12/16/16 07:21 98.0 81 24 117/58 (77) 91 12/16/16 07:15 66 12/16/16 04:03 55 12/16/16 00:20 98.4 61 18 151/72 (98) 92 12/16/16 00:00 57 12/15/16 20:15 55 12/15/16 19:13 98.5 54 18 131/58 (82) 92 12/15/16 15:12 98.0 52 22 153/74 (100) 93 12/15/16 15:00 50 12/15/16 11:35 98.1 54 16 122/58 (79) 94 119/61 (80) 113/59 (77) I/O 12/15/16 12/15/16 12/15/16 12/16/16 12/16/16 12/16/16 07:00 15:00 23:00 07:00 15:00 23:00 Intake Total 550 ml Balance 550 ml Intake Oral 550 ml # Voids 8 Result Diagram: 12/12/16 1040 12/13/16 0635 Imaging Last Impressions Chest X-Ray 12/12/16 1056 Signed Impressions: Service Date/Time: Monday, December 12, 2016 11:29 - CONCLUSION: 1. Stable elevation of the right hemidiaphragm without acute abnormality or significant interval change. Nikko Reyes MD Carotid Artery Ultrasound 12/12/16 0000 Signed Impressions: Service Date/Time: Monday, December 12, 2016 14:50 - CONCLUSION: 1. Mild mixed plaque in the carotid bulbs without significant flow-limiting stenosis. 2. Incidental note of high carotid bifurcations. 3. Antegrade vertebral artery flow bilaterally. Nikko Reyes MD CT Angiography 12/12/16 0000 Signed Impressions: Service Date/Time: Monday, December 12, 2016 13:13 - CONCLUSION: 1. No CT evidence for pulmonary artery embolism through the segmental level. 2. Elevation the right hemidiaphragm with right lower lobe atelectasis/scarring. 3. Mosaic attenuation, particularly in the upper lobes bilaterally. This may reflect air trapping, positive fluid balance or small vessel disease. 4. Moderate coronary artery calcifications. 5. Cholelithiasis. Nikko Reyes MD Objective Remarks GENERAL: Well-developed well-nourished. In no acute distress. SKIN: Warm and dry. No lesions noted. HEENT: Normocephalic. Pupils equal and round. Mucous membranes pink and moist. CARDIOVASCULAR: Regular rate and rhythm. No murmur appreciated. RESPIRATORY: No accessory muscle use. Clear to auscultation. Breath sounds equal bilaterally. GASTROINTESTINAL: Abdomen soft, non-tender, nondistended. Bowel sounds x4. MUSCULOSKELETAL: No obvious deformities. No clubbing or cyanosis. No edema. NEUROLOGICAL: Awake and alert. No focal neurological deficits. Moves upper and lower extremities spontaneously. Normal speech. PSYCHIATRIC: Appropriate mood and affect; insight and judgment normal. A/P Problem List: (1) Near syncope ICD Code: R55 - Syncope and collapse Status: Acute (2) Hypertension ICD Code: I10 - Essential (primary) hypertension Status: Acute Assessment and Plan 81-year-old female with history of hypertension, hyperlipidemia, TIA, left breast cancer s/p mastectomy/chemo, who presented after a near syncopal episode Near Syncope: suspect secondary to orthostatic hypotension. Reviewed: CXR with no acute findings. CT-PA with no PE; shows elevation of right hemidiaphragm with RLL atelectasis/scarring; mosaic attenuation in upper lobes bilaterally, may reflect air trapping, positive fluid balance, or small vessel disease; moderate coronary artery calcifications; cholelithiasis. Echocardiogram with normal systolic function EF 50-55 %. Serial cardiac enzymes and EKGs flat and unremarkable. Carotid ultrasound showed mild mixed plaque without significant flow-limiting stenosis. - Orthostatics positive as below - Continue to monitor on telemetry. - PT consulted, recommended outpatient PT - Patient fire chief's aide, Dr. Jama, consulted, appreciate input, for stress test today. Follow up cardiology recommendations. History of hypertension with acute orthostatic hypotension: -Home losartan and HCTZ were discontinued with improvement in symptoms -Cardiology recommended continuing on lower dose of nebivolol with hold parameters and low-dose amlodipine as needed -monitor BP, adjust antihypertensives as needed -Patient educated on slow transitions DVT Prophylaxis: teds/SCDs Discharge Planning Follow-up results of stress test today. Discharge planning pending clearance by cardiology. Problem Qualifiers (1) Hypertension: Qualified Codes: I10 - Essential (primary) hypertension Anand Chang Dec 16, 2016 08:23
[2016-12-16] MEDS: SODIUM CHLORIDE 0.9% FLUSH 10 ML FLUSH IV FLUSH SCH (09:10)
[2016-12-16] MEDS: ASPIRIN 81 MG CHEW TAB CHEW SCH (09:10)
[2016-12-16] MEDS ORDERED: REGADENOSON INJ 0.4 MG/5 ML SYR ONE (10:14)
--- NOTE | 2016-12-16 11:41 | RADRPT ---
EXAM DATE/TIME: 12/16/2016 09:27 [facility] COMPARISON: No previous studies available for comparison. INDICATIONS : Near syncopal episode. Chest pain. Angina. DOSE: 25.5 mCi Tc99m Myoview at stress. 8.5 mCi Tc99m Myoview at rest. 0.4 mg Lexiscan STRESS SYMPTOMS: None noted. EJECTION FRACTION: 51% MEDICAL HISTORY : Hypercholesterolemia. Hypertension. Carcinoma, breast. Stroke. SURGICAL HISTORY : Tonsillectomy. Mastectomy, left. Total knee replacement, right. ENCOUNTER: Initial ACUITY: 1 day PAIN SCALE: 0/10 LOCATION: chest TECHNIQUE: The patient underwent pharmacologic stress with infusion of prescribed dose. Continuous ECG tracing was monitored during stress. Gated SPECT imaging was performed after stress and conventional SPECT i maging was performed at rest. The examination was performed on a SPECT/CT scanner, both attenuation and non-corrected datasets were reviewed. FINDINGS: DISTRIBUTION: The maximum perfused segment at stress is in the anterolateral wall. PERFUSION STUDY: The pattern of perfusion at stress is within normal limits. GATED STUDY: There is intact wall motion and thickening without hypokinetic or dyskinetic segments. CONCLUSION: 1. Unremarkable myocardial perfusion scan. RISK CATEGORY: Low (<1% Annual Mortality Rate) Betito Nur MD on December 16, 2016 at 11:39 Board Certified Radiologist. This report was verified electronically.
--- NOTE | 2016-12-16 13:53 | HHI.DS ---
Discharge Summary Admission Date Dec 12, 2016 at 14:35 Discharge Date: Dec 16, 2016 Admitting Diagnosis near-syncope (1) Near syncope ICD Code: R55 - Syncope and collapse Status: Acute (2) Hypertension ICD Code: I10 - Essential (primary) hypertension Diagnosis: Secondary Status: Acute Procedures None Brief History - From Admission 81-year-old female with history of hypertension, hyperlipidemia, TIA, left breast cancer s/p mastectomy/chemo, presents with a near syncopal episode today. The patient reports she presented to the ED 11/23/16 with headaches and hypertension, she was instructed to start taking her amlodipine in the morning and Bystolic at nighttime, otherwise no adjustment of dosages. Now over the past 2 weeks she just hasn't felt well with poor energy, lightheadedness, and weakness. Daughter is at bedside who assists with the history. The daughter reports the patient has looked wagoner over the past few days, with increased weakness, unable to stand for long periods of time which is unusual for her. She also reports the patient has been complaining of an intermittent tightness in her throat described as a choking sensation over the past few months. Denies any chest pains but does report some shortness of breath. The patient reports today she felt extremely lightheaded and diaphoretic. The patient felt like she was going to pass out but did not lose consciousness. Symptoms relieved by sitting back down. Denies any headache, visual changes, unilateral numbness/ tingling/weakness. Denies any recent abdominal pain, nausea/vomiting, diarrhea or constipation. Her materials scheduler is Dr. Jama. Her last nuclear stress test was 6 years ago, reportedly normal. Of note, the daughter reports the patient has been taking her blood pressure every day at home, mostly SBP in the 170s. Upon arrival to the ED today, her blood pressure was 103/60. The patient has no other medical complaints to report at this time. CBC/BMP: 12/12/16 1040 12/13/16 0635 Imaging Last Impressions Myocardial Perfusion Scan Nuc Med 12/16/16 0000 Signed Impressions: Service Date/Time: Friday, December 16, 2016 09:27 - CONCLUSION: 1. Unremarkable myocardial perfusion scan. RISK CATEGORY: Low (<1%% Annual Mortality Rate) Betito Nur MD Chest X-Ray 12/12/16 1056 Signed Impressions: Service Date/Time: Monday, December 12, 2016 11:29 - CONCLUSION: 1. Stable elevation of the right hemidiaphragm without acute abnormality or significant interval change. Nikko Reyes MD Carotid Artery Ultrasound 12/12/16 0000 Signed Impressions: Service Date/Time: Monday, December 12, 2016 14:50 - CONCLUSION: 1. Mild mixed plaque in the carotid bulbs without significant flow-limiting stenosis. 2. Incidental note of high carotid bifurcations. 3. Antegrade vertebral artery flow bilaterally. Nikko Reyes MD CT Angiography 12/12/16 0000 Signed Impressions: Service Date/Time: Monday, December 12, 2016 13:13 - CONCLUSION: 1. No CT evidence for pulmonary artery embolism through the segmental level. 2. Elevation the right hemidiaphragm with right lower lobe atelectasis/scarring. 3. Mosaic attenuation, particularly in the upper lobes bilaterally. This may reflect air trapping, positive fluid balance or small vessel disease. 4. Moderate coronary artery calcifications. 5. Cholelithiasis. Nikko Reyes MD PE at Discharge GENERAL: Well-developed well-nourished. In no acute distress. SKIN: Warm and dry. No lesions noted. HEENT: Normocephalic. Pupils equal and round. Mucous membranes pink and moist. CARDIOVASCULAR: Regular rate and rhythm. No murmur appreciated. RESPIRATORY: No accessory muscle use. Clear to auscultation. Breath sounds equal bilaterally. GASTROINTESTINAL: Abdomen soft, non-tender, nondistended. Bowel sounds x4. MUSCULOSKELETAL: No obvious deformities. No clubbing or cyanosis. No edema. NEUROLOGICAL: Awake and alert. No focal neurological deficits. Moves upper and lower extremities spontaneously. Normal speech. PSYCHIATRIC: Appropriate mood and affect; insight and judgment normal. Pt update on day of discharge Stress test is nonischemic. Discussed with cardiology, Dr. Jama, patient is cleared for discharge home. Patient and daughter updated regarding findings and plan of care and are happy to go home today. Hospital Course 81-year-old female with history of hypertension, hyperlipidemia, TIA, left breast cancer s/p mastectomy/chemo, who presented after a near syncopal episode Near Syncope: suspect secondary to orthostatic hypotension. Reviewed: CXR with no acute findings. CT-PA with no PE; shows elevation of right hemidiaphragm with RLL atelectasis/scarring; mosaic attenuation in upper lobes bilaterally, may reflect air trapping, positive fluid balance, or small vessel disease; moderate coronary artery calcifications; cholelithiasis. Echocardiogram with normal systolic function EF 50-55 %. Serial cardiac enzymes and EKGs flat and unremarkable. Carotid ultrasound showed mild mixed plaque without significant flow-limiting stenosis. - Orthostatics positive as below - PT consulted, recommended outpatient PT - Patient materials scheduler, Dr. Jama, consulted, ordered stress test with jaw pain which was nonischemic. Patient cleared by cardiology for discharge. History of hypertension with acute orthostatic hypotension: -Home losartan and HCTZ were discontinued with improvement in symptoms -Cardiology recommended continuing on lower dose of nebivolol with hold parameters and low-dose amlodipine as needed -Patient educated on slow transitions Pt Condition on Discharge: Stable Discharge Disposition: Discharge Home Discharge Time: > 30 minutes Discharge Instructions DIET: Follow Instructions for: Heart Healthy Diet Activities you can perform: Regular-No Restrictions Other Activity Instructions: Transition slowly from lying to sitting and sitting to standing Follow up Referrals: Cardiology - 2 Weeks with Rashad Jama MD PCP Follow-up - 1 Week with Betito Hallman MD New Medications: Amlodipine (Norvasc) 5 Mg Tab 2.5 MG PO DAILY PRN for hypertension for 30 Days, #30 TAB Nebivolol (Bystolic) 5 Mg Tab 2.5 MG PO HS for hypertension for 30 Days, #30 TAB Continued Medications: Aspirin (Aspirin) 81 Mg Chew 81 MG CHEW DAILY, TAB 0 Refills Discontinued Medications: Amlodipine (Amlodipine) 5 Mg Tab 5 MG PO DAILY for Blood Pressure Management, #30 TAB 0 Refills Nebivolol (Bystolic) 5 Mg Tab 5 MG PO DAILY for Blood Pressure Management, #30 TAB 0 Refills Potassium Chloride ER (Potassium Chloride ER) 20 Meq Tab 20 MEQ PO DAILY for Electrolyte Replacement, #30 TAB 0 Refills Anand Chang Dec 16, 2016 13:53
--- NOTE | 2016-12-16 14:50 | PD.CARD.PN ---
Subjective Subjective Remarks The patient denies SOB or CP Objective Medications Current Medications Medications (Trade) Dose Ordered Sig/Ofelia Route Start Time Stop Time Status Last Admin (NS Flush) 2 ml UNSCH PRN IV FLUSH 12/12/16 14:30 (NS Flush) 2 ml BID IV FLUSH 12/12/16 21:00 12/16/16 09:10 (Narcan Inj) 0.4 mg UNSCH PRN IV PUSH 12/12/16 14:30 (Milk Of Magnesia Liq) 30 ml Q12H PRN PO 12/12/16 14:30 (Senokot) 17.2 mg Q12H PRN PO 12/12/16 14:30 (Dulcolax Supp) 10 mg DAILY PRN RECTAL 12/12/16 14:30 (Lactulose Liq) 30 ml DAILY PRN PO 12/12/16 14:30 (Aspirin Chew) 81 mg DAILY CHEW 12/13/16 09:00 12/16/16 09:10 (Tylenol) 650 mg Q4H PRN PO 12/13/16 11:45 (Bystolic) 2.5 mg HS PO 12/15/16 21:00 (Norvasc) 2.5 mg DAILY PRN PO 12/15/16 12:00 (Pill Splitter) 1 ea UNSCH PRN OTHER 12/15/16 12:15 Vital Signs / I&O Vital Signs Date Time Temp Pulse Resp B/P (MAP) Pulse Ox O2 Delivery O2 Flow Rate FiO2 12/16/16 12:07 98.0 52 24 130/66 (87) 96 12/16/16 07:26 97.9 63 20 125/60 (81) 94 12/16/16 07:21 98.0 81 24 117/58 (77) 91 12/16/16 07:15 66 12/16/16 04:03 55 12/16/16 00:20 98.4 61 18 151/72 (98) 92 12/16/16 00:00 57 12/15/16 20:15 55 12/15/16 19:13 98.5 54 18 131/58 (82) 92 12/15/16 15:12 98.0 52 22 153/74 (100) 93 12/15/16 15:00 50 I/O 10/9/17 10/9/12/15/16 12/16/16 12/16/16 12/16/16 07:00 15:00 23:00 07:00 15:00 23:00 Intake Total 550 ml Balance 550 ml Intake Oral 550 ml # Voids 8 2 Physical Exam GENERAL: Overweight female, daughter bedside SKIN: Warm and dry. HEAD: Normocephalic. EYES: No scleral icterus. No injection or drainage. NECK: Supple, trachea midline. CARDIOVASCULAR: Regular rate and rhythm without murmurs, gallops, or rubs. Bilateral mastectomy RESPIRATORY: Breath sounds equal bilaterally. No accessory muscle use. GASTROINTESTINAL: Abdomen soft, non-tender, nondistended. MUSCULOSKELETAL: No cyanosis, or edema. BACK: Nontender without obvious deformity. Imaging Last 72 hours Impressions Myocardial Perfusion Scan Nuc Med 12/16/16 0000 Signed Impressions: Service Date/Time: Friday, December 16, 2016 09:27 - CONCLUSION: 1. Unremarkable myocardial perfusion scan. RISK CATEGORY: Low (<1%% Annual Mortality Rate) Betito Nur MD Assessment and Plan Problem List: (1) Near syncope ICD Codes: R55 - Syncope and collapse Status: Acute (2) Hypertension ICD Codes: I10 - Essential (primary) hypertension Status: Acute (3) Dehydration ICD Codes: E86.0 - Dehydration Status: Acute (4) Jaw pain ICD Codes: R68.84 - Jaw pain Assessment and Plan We will stop Bystolic due to low BP and positive orthostatic vitals. Continue amlodipine 2.5 mg PRN for SBP > 180 or DBP > 90 or amlodipine 5 mg PRN for SBP > 200 or DBP > 100 Advised to increase salt intake Nuclear stress test negative for ischemia The patient is clear for DC from cardiac standpoint We will follow up in the office in 1- 2 weeks. Advised to maintain BP and HR log and bring with her to follow up appointment. Assessment and plan discussed with Dr Jama. Problem Qualifiers (1) Hypertension: Qualified Codes: I10 - Essential (primary) hypertension Shellie Perez Dec 16, 2016 14:50
[2016-12-16] MEDS ORDERED: amLODIPine BESYLATE 5 MG TAB PO PRN (15:00)
== END 2016-12-16 17:20 | disposition home or self-care (01) ==
LOC: NEPE 10:13 → NEDA 14:35 → NEPHCDU 16:06
PROVIDERS: ADMIT Hospitalist; ATTEND Hospitalist
DX: R55 Syncope and collapse (principal); I10 Essential (primary) hypertension; I95.1 Orthostatic hypotension; R42 Dizziness and giddiness; R53.1 Weakness; R61 Generalized hyperhidrosis; E86.0 Dehydration; R00.1 Bradycardia, unspecified; R68.84 Jaw pain; R07.9 Chest pain, unspecified; I20.9 Angina pectoris, unspecified; K80.20 Calculus of gallbladder without cholecystitis without obstruction; R06.02 Shortness of breath; E78.00 Pure hypercholesterolemia, unspecified; E11.9 Type 2 diabetes mellitus without complications; M19.90 Unspecified osteoarthritis, unspecified site; E66.3 Overweight; Z79.899 Other long term (current) drug therapy; Z79.82 Long term (current) use of aspirin; Z96.653 Presence of artificial knee joint, bilateral; Z86.73 Personal history of transient ischemic attack (TIA), and cerebral infarction without residual deficits; Z85.3 Personal history of malignant neoplasm of breast; Z90.12 Acquired absence of left breast and nipple
CPT/HCPCS: 71010; 71275; 78452; 80048; 82550; 82948; 83735; 83880; 84484; 85025; 85610; 85730; 93005; 93017; 93306; 93880; 96360; 96361; A9502; G0378; G8987-GP; G8988-GP; J2785; J7030; J7040; Q9967

== ENCOUNTER 2018-01-19 09:20 | Observation (INO) ==
--- NOTE | 2018-01-19 10:12 | ED ---
HPI General Chief complaint: Weakness Stated complaint: General weakness x 2 days Time Seen by Provider: 01/19/18 09:48 Source: patient Mode of arrival: ambulatory Limitations: no limitations History of Present Illness HPI narrative: 82yo F with PMH of HTN, CHF, bilateral knee replacement, breast CA years ago here with c/o generalized weakness that is worst for last two days. Pt said she has been having these episodes of feeling like she is going to pass out while standing and walking for a few weeks. Said primary care and has MRI and neurology evaluation as an outpatient pending. Said that for the last 2 days, she has had 3 episodes of feeling like she is going to go out. Said at times she feels like her legs are weak and she is going to fall. However, she does not feel any leg weakness while lying down right now. Denies any fever, fall, back pain, chest pain, sob, n/v, abdominal pain, focal numbness , urinary complaints. Pt's behavioral health associate is Dr. Jama. Related Data Home Medications Medication Instructions Recorded Confirmed aspirin [Aspirin Low Dose] 81 mg PO DAILY 10/27/17 01/19/18 losartan 50 mg PO DAILY 01/19/18 01/19/18 Allergies Allergy/AdvReac Type Severity Reaction Status Date / Time No Known Allergies Allergy Verified 01/19/18 09:28 Review of Systems ROS: all other systems reviewed are negative FOR[facility]LY [facility] Social History Social History Substance History: No History of Abuse Second Hand Smoke Exposure: No Smoking Status: Never smoker How Often Do You Have a Drink Containing Alcohol: Never Recent Travel in [facility] within the Last 8 Weeks: No Recent Out of Country Travel within the Last 8 Weeks: No Immunization History Tetanus Immunization: Unsure Exam Narrative Exam Narrative: GENERAL: 82yo F not in distress. SKIN: Focused skin assessment warm/dry. HEAD: Atraumatic. Normocephalic. EYES: Pupils equal and round at 3mm bilaterally. EOMI. ENT: No nasal bleeding or discharge. Mucous membranes pink and moist. NECK: Trachea midline. No JVD. CARDIOVASCULAR: Regular rate and rhythm. No murmur appreciated. RESPIRATORY: No accessory muscle use. Mild wheezing crackles in lower lugns. Breath sounds equal bilaterally. GASTROINTESTINAL: Abdomen soft, non-tender, nondistended. MUSCULOSKELETAL: No obvious deformities. No clubbing. No cyanosis. No edema. NEUROLOGICAL: Awake and alert. No obvious cranial nerve deficits. Motor grossly within normal limits in all extremities. Sensation equal in all extremities. Normal speech. PSYCHIATRIC: Appropriate mood and affect; insight and judgment normal. Course Initial Documented Vital Signs Temperature 97.5 F L 01/19/18 09:22 Pulse Rate 60 01/19/18 09:22 Respiratory Rate 20 01/19/18 09:22 Blood Pressure 130/78 01/19/18 09:22 Pulse Oximetry 94 L 01/19/18 09:22 Last Documented Vital Signs Temperature 97.5 F L 01/19/18 09:22 Pulse Rate 50 L 01/19/18 12:59 Respiratory Rate 16 01/19/18 09:44 Blood Pressure 174/80 H 01/19/18 12:59 Pulse Oximetry 95 01/19/18 12:59 Medical Decision Making MDM Narrative Medical decision making narrative: 82yo F with c/o generalized weakness and near syncope for 2 days. Said she feels like she is about to pass out and there were 3 episodes in the last 2 days. Labs reviewed, no leukocytosis. H/H normal. Troponin negative. BNP normal at 58. BUN/creatinine 30/1.20. CXR negative. Orthostatic is positive and pt given 500cc of IVF. UA showed WBC 21- 50. Pt given ceftriaxone 1gm IV. Pt reevaluated at bedside and said she still feels very weak when she stands. She said her legs are weak sometimes but on exam does not have focal weakness. Will admit for observation for generalized weakness/near syncope and UTI in elderly. Pt was admitted for something similar in 12/2016 but daughter said this is completely different. Discussed with Dr. Davies and accepted to his service. I reevaluated patient and she is consistently saturating at 90-91% on RA with good wave form on the monitor. However, she denies any chest pain or sob. ABG showed O2 sat at 89% on RA. Will add CTA to r/o PE. Pt have a good 20gauge IV in right hand but unable to obtain one in AC for CT so will do VQ scan instead. Vascular access comes after 5pm so if needed, can always consult. Pt's saturation fluctuates from low 90s to mid 90s. Informed Dr. Davies about this and he agrees with plan. VQ scan showed low probability for PE. Medical Screen Exam Complete: Yes Emergency Medical Condition: Yes Differential Diagnosis Differential Diagnosis: Arrhythmia vs. electrolyte abnormality vs. orthostatic hypotension vs. infection Lab Data Result diagrams: 01/19/18 10:10 01/19/18 10:10 Lab Results 01/19/18 01/19/18 01/19/18 Range/Units 10:10 10:10 10:10 CBC w Diff Auto diff final WBC 6.4 (4.0-11.0) th/mm3 RBC 4.17 (4.00-5.30) mil/mm3 Hgb 13.6 (11.6-15.3) gm/dL Hct 40.0 (35.0-46.0) % MCV 95.9 (80.0-100.0) fL MCH 32.7 (27.0-34.0) pg MCHC 34.1 (32.0-36.0) % RDW 13.3 (11.6-17.2) % Plt Count 216 (150-450) th/mm3 MPV 7.8 (7.0-11.0) fL Neut % (Auto) 46.5 (16.0-70.0) % Lymph % (Auto) 38.9 (9.0-44.0) % Carver % (Auto) 12.1 H (0.0-8.0) % Eos % (Auto) 0.3 (0.0-4.0) % Baso % (Auto) 2.2 H (0.0-2.0) % Neut # (Auto) 3.0 (1.8-7.7) th/mm3 Lymph # (Auto) 2.5 (1.0-4.8) th/mm3 Carver # (Auto) 0.8 (0.0-0.9) th/mm3 Eos # (Auto) 0.0 (0.0-0.4) th/mm3 Baso # (Auto) 0.1 (0.0-0.2) th/mm3 WBC Differential . Differential Comment . Puncture Site Patient Temperature O2 Saturation (90-100) % ABG pH (7.380-7.420) ABG pCO2 (38-42) mmHg ABG pO2 (61-120) mmHg ABG HCO3 (22-26) mmol/L ABG O2 Content (12.0-20.0) Vol % ABG Base Excess (-2-2) mmol/L ABG Methemoglobin (0-2) % Julio Test Hemoglobin (12.0-16.0) G/DL Carboxyhemoglobin (0-4) % O2 Delivery Device Inspired O2 % Critical Value Sodium 138 (136-145) meq/L Potassium 3.9 (3.5-5.1) meq/L Chloride 102 (98-107) meq/L Carbon Dioxide 27.6 (21.0-32.0) meq/L Anion Gap 8 (5-15) meq/L BUN 30 H (7-18) mg/dL Creatinine 1.20 H (0.50-1.00) mg/dL Estimated GFR 43 L (>89) mL/min Random Glucose 92 (74-106) mg/dL Calcium 8.6 (8.5-10.1) mg/dL Magnesium 2.6 H (1.5-2.5) mg/dL Total Bilirubin 0.8 (0.2-1.0) mg/dL AST 35 (15-37) U/L ALT 35 (10-53) U/L Alkaline Phosphatase 65 (45-117) U/L Troponin I Less than 0.02 L (0.02-0.05) ng/mL B-Natriuretic Peptide 58 (0-100) pg/mL Total Protein 7.4 (6.4-8.2) g/dL Albumin 3.3 L (3.4-5.0) g/dL Ur Collection Type Urine Color (Yellw/Straw) Urine Clarity (Clear) Urine pH (5.0-8.5) Ur Specific Darby (1.002-1.035) Urine Protein (Neg-Trace) mg/dL Urine Glucose (UA) (Negative) mg/dL Urine Ketones (Negative) mg/dL Urine Occult Blood (Negative) Urine Nitrate (Negative) Urine Bilirubin (Negative) Urine Urobilinogen (Less than 2) mg/dL Ur Leukocyte Esterase (Negative) Urine WBC (0-5) /hpf Ur Squamous Epith Cells (0-5) /hpf Urine Bacteria (None) /hpf Micro UA Comment Ur Microscopic Review Urine Culture Comments 01/19/18 01/19/18 Range/Units 10:40 12:50 CBC w Diff WBC (4.0-11.0) th/mm3 RBC (4.00-5.30) mil/mm3 Hgb (11.6-15.3) gm/dL Hct (35.0-46.0) % MCV (80.0-100.0) fL MCH (27.0-34.0) pg MCHC (32.0-36.0) % RDW (11.6-17.2) % Plt Count (150-450) th/mm3 MPV (7.0-11.0) fL Neut % (Auto) (16.0-70.0) % Lymph % (Auto) (9.0-44.0) % Carver % (Auto) (0.0-8.0) % Eos % (Auto) (0.0-4.0) % Baso % (Auto) (0.0-2.0) % Neut # (Auto) (1.8-7.7) th/mm3 Lymph # (Auto) (1.0-4.8) th/mm3 Carver # (Auto) (0.0-0.9) th/mm3 Eos # (Auto) (0.0-0.4) th/mm3 Baso # (Auto) (0.0-0.2) th/mm3 WBC Differential Differential Comment Puncture Site Right radial Patient Temperature 98.6 O2 Saturation 89 L* (90-100) % ABG pH 7.39 (7.380-7.420) ABG pCO2 45 H (38-42) mmHg ABG pO2 65 (61-120) mmHg ABG HCO3 27 H (22-26) mmol/L ABG O2 Content 16.5 (12.0-20.0) Vol % ABG Base Excess 2.1 H (-2-2) mmol/L ABG Methemoglobin 1.3 (0-2) % Julio Test Present Hemoglobin 13.1 (12.0-16.0) G/DL Carboxyhemoglobin 1.4 (0-4) % O2 Delivery Device Room air Inspired O2 21 % Critical Value Yes Sodium (136-145) meq/L Potassium (3.5-5.1) meq/L Chloride (98-107) meq/L Carbon Dioxide (21.0-32.0) meq/L Anion Gap (5-15) meq/L BUN (7-18) mg/dL Creatinine (0.50-1.00) mg/dL Estimated GFR (>89) mL/min Random Glucose (74-106) mg/dL Calcium (8.5-10.1) mg/dL Magnesium (1.5-2.5) mg/dL Total Bilirubin (0.2-1.0) mg/dL AST (15-37) U/L ALT (10-53) U/L Alkaline Phosphatase (45-117) U/L Troponin I (0.02-0.05) ng/mL B-Natriuretic Peptide (0-100) pg/mL Total Protein (6.4-8.2) g/dL Albumin (3.4-5.0) g/dL Ur Collection Type Clean catch Urine Color Yellow (Yellw/Straw) Urine Clarity Slightly cloudy (Clear) Urine pH 6.5 (5.0-8.5) Ur Specific Darby 1.020 (1.002-1.035) Urine Protein Trace (Neg-Trace) mg/dL Urine Glucose (UA) Negative (Negative) mg/dL Urine Ketones Negative (Negative) mg/dL Urine Occult Blood Negative (Negative) Urine Nitrate Negative (Negative) Urine Bilirubin Negative (Negative) Urine Urobilinogen 1.0 (Less than 2) mg/dL Ur Leukocyte Esterase Large H (Negative) Urine WBC 21-50 H (0-5) /hpf Ur Squamous Epith Cells 6-10 H (0-5) /hpf Urine Bacteria Moderate H (None) /hpf Micro UA Comment Culture indicated Ur Microscopic Review Microscopic reviewed Urine Culture Comments Culture indicated Imaging Data Radiologist's impression: Carotid Doppler Study 01/19/18 00:00 CONCLUSION: 1. Right Internal Carotid Artery: No significant stenosis or atherosclerotic plaque is visualized. 2. Left Internal Carotid Artery: No significant stenosis or atherosclerotic plaque is visualized. Head CT 01/19/18 00:00 CONCLUSION: 1. 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 2. No acute intracranial abnormality identified. . Chest X-Ray 01/19/18 10:06 CONCLUSION: The lungs are clear. Elevation of the right hemidiaphragm similar to previous exam. Pulmonary Perfusion Imaging 01/19/18 13:15 CONCLUSION: 1. Low probability for pulmonary embolism. ECG Data EKG Prior to Arrival: No Attestation: I personally reviewed and interpreted this ECG as follows: Interpretation: Sinus bradycardia at 49bpm. Normal axis. ND interval 182ms. No significant ST elevation or depression. Discharge Plan Discharge Disposition Patient Disposition: 30 Still Patient Discharge Details Diagnosis: Acute UTI, Generalized weakness Physicians Team ED Provider: Flor Stapleton Primary Care Provider: Betito Hallman Attending Provider: Tra Davies Status ED Status: Left Department Discharge Information Discharge Date/Time: 01/19/18 13:50
--- NOTE | 2018-01-19 10:26 | XR ---
EXAM DATE: 01/19/2018 10:20 AM EST AGE/SEX: 82 years / Female INDICATIONS: Weakness. CLINICAL DATA: This is the patient's initial encounter. Patient reports that signs and symptoms have been present for 2 days and indicates a pain score of 0/10. MEDICAL/SURGICAL HISTORY: Carcinoma, breast. Congestive heart failure. Hypertension. Mastecto my, left. COMPARISON: [facility], CHEST 1V SINGLE AP, 10/27/2017. . FINDINGS: There is elevation of the right hemidiaphragm. This is similar to previous dated 10/27/2017. The heart is normal in size. The pulmonary parenchyma is clear. There are surgical clips in the left axilla. There are degenerative changes in the shoulders bilaterally. CONCLUSION: The lungs are clear. Elevation of the right hemidiaphragm similar to previous exam. Electronically signed by: Hardeep Gar MD 01/19/2018 10:25 AM EST
[2018-01-19 10:29] LABS: Chloride 102 meq/L (98-107); Potassium 3.9 meq/L (3.5-5.1); Sodium 138 meq/L (136-145)
[2018-01-19 10:32] LABS: Albumin 3.3 g/dL (3.4-5.0); Anion Gap 8 meq/L (5-15); Baso # (Auto) 0.1 th/mm3 (0.0-0.2); Baso % (Auto) 2.2 % (0.0-2.0); Calcium 8.6 mg/dL (8.5-10.1); Carbon Dioxide 27.6 meq/L (21.0-32.0); Eos % (Auto) 0.3 % (0.0-4.0); Hemoglobin 13.6 gm/dL (11.6-15.3); Lymph # (Auto) 2.5 th/mm3 (1.0-4.8); Lymph % (Auto) 38.9 % (9.0-44.0); Mean Corpuscular HGB Conc 34.1 % (32.0-36.0); Mean Corpuscular Hemoglobin 32.7 pg (27.0-34.0); Mean Corpuscular Volume 95.9 fL (80.0-100.0); Mean Platelet Volume 7.8 fL (7.0-11.0); Mono # (Auto) 0.8 th/mm3 (0.0-0.9); Mono % (Auto) 12.1 % (0.0-8.0); Neut % (Auto) 46.5 % (16.0-70.0); Platelet Count 216 th/mm3 (150-450); Red Blood Count 4.17 mil/mm3 (4.00-5.30); Red Cell Distribution Width 13.3 % (11.6-17.2); White Blood Count 6.4 th/mm3 (4.0-11.0)
[2018-01-19 10:33] LABS: Blood Urea Nitrogen 30 mg/dL (7-18); Glucose,Random 92 mg/dL (74-106); Magnesium 2.6 mg/dL (1.5-2.5)
[2018-01-19 10:36] LABS: Alanine Aminotransferase 35 U/L (10-53); Aspartate Aminotransferase 35 U/L (15-37); Glomerular Filtration Rate 43 mL/min (>89)
[2018-01-19 10:37] LABS: Total Protein 7.4 g/dL (6.4-8.2)
[2018-01-19 10:38] LABS: Alkaline Phosphatase 65 U/L (45-117)
[2018-01-19 10:51] LABS: Bilirubin,Urine Negative (Negative); Clarity,Urine Slightly Cloudy (Clear); Color,Urine Yellow (Yellw/Straw); Glucose,Urine (UA) Negative (Negative); Leukocyte Esterase,Urine Large (Negative); Nitrite,Urine Negative (Negative); PH,Urine 6.5 (5.0-8.5)
[2018-01-19 10:58] LABS: WBC,Urine 21-50 /hpf (0-5)
[2018-01-19 10:59] LABS: Bacteria,Urine Moderate /hpf
[2018-01-19] MEDS ORDERED: Sodium Chlor 0.9% Inj 500 ML IV.SIG SCH (12:00)
[2018-01-19 12:56] LABS: ABG Base Excess 2.1 mmol/L (-2-2); ABG PCO2 45 mmHg (38-42); ABG PO2 65 mmHg (61-120)
--- NOTE | 2018-01-19 13:43 | P.HPIM ---
History of Present Illness Primary Care Physician: Betito Hallman MD History of Present Illness: This patient is an 82-year-old female with a diagnosis of hypertension, congestive heart failure, bilateral knee replacement, breast cancer status post mastectomy and chemotherapy in 1995. The patient has been having presyncopal episodes over the past couple of months. She says that when she ambulates she occasionally feels like her lower extremities are going to give out. She has been seen outpatient for similar symptoms. She denies having any chest pain, no palpitations prior to feeling dizzy. She has not had any episodes while at rest. She denies any fevers or chills, no abdominal pain. The patient does admit to urinary frequency. Past medical history hypertension, dyslipidemia, history of breast cancer status post left-sided mastectomy and chemotherapy Past surgical history bilateral knee replacements, left-sided mastectomy Social history the patient stopped smoking approximately 38 years ago. Previously she smoked on and off for about 5 years. Patient drinks alcohol socially specifically on holidays, no history of drug use Family history significant for coronary artery disease, hypertension. Review of Systems All other systems reviewed negative except as stated in HPI PMFSH - History History Provided By: Patient, Family Member - Medical History Medical History: Medical History (Last Updated 01/19/18 @ 09:45 by Mone Dyson RN) Lymphedema Syncope Breast CA CHF (congestive heart failure) Hypertension - Surgical History Surgical History: Surgical History (Last Reviewed 01/19/18 @ 09:45 by Mone Dyson RN) H/O mastectomy History of bilateral knee replacement - Tobacco History Second Hand Smoke Exposure: No Tobacco Use In Past 30 Days: No Smoking Status: Former smoker - Alcohol History How Often Do You Have a Drink Containing Alcohol: Monthly or less - Substance Use History Substance History: No History of Abuse - Travel History Recent Travel in the [place] Within the Last 8 Weeks: No Recent Travel Out of the Country Within the Last 8 Weeks: No - Immunization History Tetanus Immunization: Unsure Medications and Allergies Active Medications: Active Medications Sodium Chloride (Ns Flush) 2 ml IV.FLUSH PRN PRN PRN Reason: FLUSH AFTER USING IV ACCESS Allergies Allergy/AdvReac Type Severity Reaction Status Date / Time No Known Allergies Allergy Verified 01/19/18 09:28 Home Medications Medication Instructions Recorded Confirmed Type aspirin [Aspirin Low Dose] 81 mg PO DAILY 10/27/17 01/19/18 History losartan 50 mg PO DAILY 01/19/18 01/19/18 History Exam Vital signs: Vital Signs 01/19/18 09:22 01/19/18 09:44 01/19/18 10:16 Temperature 97.5 F L Pulse Rate 60 62 54 L Respiratory Rate 20 16 Blood Pressure 130/78 153/82 H Pulse Oximetry 94 L 95 01/19/18 12:59 Temperature Pulse Rate 50 L Respiratory Rate Blood Pressure 174/80 H Pulse Oximetry 95 Intake & Output 01/18/18 01/19/18 01/19/18 18:59 06:59 18:59 Intake Total 600 / 600 Balance 600 / 600 Weight 93 kg Intake: IV 600 / 600 NS Inj 500 ML @ 1000 mls/hr IV. 500 / 500 SIG BOLUS SOULEYMANE Rx#:[id number] Rocephin Inj 1,000 MG In NS Inj 100 / 100 100 ML @ 200 mls/hr IV.SIG ONCE ONE Rx#:[id number] Narrative: General patient in no acute distress HEENT extraocular movements are intact, clear oropharyngeal mucosa, no JVD, no carotid bruits Cardiovascular S1-S2 audible, RRR, no murmurs rubs or gallops, status post left- sided mastectomy Respiratory clear to auscultation bilaterally Abdomen soft, nontender, nondistended, normal bowel sounds Extremities edema noted of the left upper and left lower extremity, these are chronic findings as per the patient and her daughter at bedside. Neuro cranial nerves II through XII intact Results - Labs CBC & Chem 7: 01/19/18 10:10 01/19/18 10:10 Labs: Short CBC 01/19/18 Range/Units 10:10 WBC 6.4 (4.0-11.0) th/mm3 Hgb 13.6 (11.6-15.3) gm/dL Hct 40.0 (35.0-46.0) % Plt Count 216 (150-450) th/mm3 BMP 01/19/18 10:10 Sodium 138 Potassium 3.9 Chloride 102 Carbon Dioxide 27.6 BUN 30 H Creatinine 1.20 H Calcium 8.6 Cardiac Enzymes 01/19/18 Range/Units 10:10 Troponin I Less than 0.02 L (0.02-0.05) ng/mL Liver Function 01/19/18 Range/Units 10:10 Total Bilirubin 0.8 (0.2-1.0) mg/dL AST 35 (15-37) U/L ALT 35 (10-53) U/L Alkaline Phosphatase 65 (45-117) U/L Albumin 3.3 L (3.4-5.0) g/dL Urine 01/19/18 Range/Units 10:40 Urine Color Yellow (Yellw/Straw) Urine Clarity Slightly cloudy (Clear) Urine pH 6.5 (5.0-8.5) Ur Specific [place]ford 1.020 (1.002-1.035) Urine Protein Trace (Neg-Trace) mg/dL Urine Glucose (UA) Negative (Negative) mg/dL - Imaging Impressions Chest X-Ray 01/19/18 10:06 CONCLUSION: The lungs are clear. Elevation of the right hemidiaphragm similar to previous exam. Caprini VTE Risk Assessment Caprini VTE Risk Assessment: Moderate/High Risk (score >= 2) Caprini Risk Assessment Model: Point Value = 1 Point Value = 2 Point Value = 3 Point Value = 5 Age 41-60 Minor surgery BMI > 25 kg/m2 Swollen legs Varicose veins or History of unexplained or recurrent spontaneous Oral contraceptives or hormone replacement Sepsis (< 1 month) Serious lung disease, including pneumonia (< 1 month) Abnormal pulmonary function Acute myocardial infarction Congestive heart failure (< 1 month) History of inflammatory bowel disease Medical patient at bed rest Age 61-74 Arthroscopic surgery Major open surgery (> 45 min) Laparoscopic surgery (> 45 min) Malignancy Confined to bed (> 72 hours) Immobilizing plaster cast Central venous access Age >= 75 History of VTE Family history of VTE Factor V Leiden Prothrombin [id number] Lupus anticoagulant Anticardiolipin antibodies Elevated serum homocysteine Heparin-induced thrombocytopenia Other congenital or acquired thrombophilia Stroke (< 1 month) Elective arthroplasty Hip, pelvis, or leg fracture Acute spinal cord injury (< 1 month) Prophylaxis Regimen: Total Risk Factor Score Risk Level Prophylaxis Regimen 0-1 Low Early ambulation 2 Moderate Order ONE of the following: *Sequential Compression Device (SCD) *Heparin 5000 units SQ BID 3-4 Higher Order ONE of the following medications: *Heparin 5000 units SQ TID *Enoxaparin/Lovenox 40 mg SQ daily (WT < 150 kg, CrCl > 30 mL/min) *Enoxaparin/Lovenox 30 mg SQ daily (WT < 150 kg, CrCl > 10-29 mL/min) *Enoxaparin/Lovenox 30 mg SQ BID (WT < 150 kg, CrCl > 30 mL/min) AND/OR *Sequential Compression Device (SCD) 5 or more Highest Order ONE of the following medications: *Heparin 5000 units SQ TID (Preferred with Epidurals) *Enoxaparin/Lovenox 40 mg SQ daily (WT < 150 kg, CrCl > 30 mL/min) *Enoxaparin/Lovenox 30 mg SQ daily (WT < 150 kg, CrCl > 10-29 mL/min) *Enoxaparin/Lovenox 30 mg SQ BID (WT < 150 kg, CrCl > 30 mL/min) AND *Sequential Compression Device (SCD) Assessment and Plan - Plan This patient is an 82-year-old female with a diagnosis of hypertension, congestive heart failure, bilateral knee replacement, breast cancer status post mastectomy and chemotherapy in 1995. The patient has been having presyncopal episodes over the past couple of months. She says that when she ambulates she occasionally feels like her lower extremities are going to give out. She has been seen outpatient for similar symptoms. She denies having any chest pain, no palpitations prior to feeling dizzy. She has not had any episodes while at rest. Patient also admits to urinary frequency. 1. Presyncope concern for arrhythmia The patient presented with the findings mentioned above. CT scan of the head is pending EKG shows normal sinus rhythm no acute ST segment or T wave changes. Troponins are negative. Patient is bradycardic with a heart rate of 49. Ultrasound of carotids, echocardiogram pending Monitor on telemetry Bedrest for now, will have physical therapy evaluate the patient. Orthostatic vitals were positive. Patient started on normal saline. 2. Acute hypoxic respiratory failure Patient was found to be hypoxic in the emergency department. Chest x-rays negative. Patient denies having a cough. VQ scan ordered by the emergency department. We will follow-up results of the scan. ABG shows that the patient is slightly hypoxic. Continue supplemental oxygen as needed. 3. Hypertension Patient will be started on hydralazine. I will adjust her blood pressure medications as needed. Heparin for DVT prophylax
[2018-01-19] MEDS ORDERED: hydrALAZINE 25 MG Tablet PO SCH (15:00)
--- NOTE | 2018-01-19 15:03 | US ---
EXAM DATE: 01/19/2018 2:58 PM EST AGE/SEX: 82 years / Female INDICATIONS: Intermittent weakness. CLINICAL DATA: This is the patient's initial encounter. Patient reports that signs and symptoms have been present for 1 day and indicates a pain score of 0/10. MEDICAL/SURGICAL HISTORY: Carcinoma, breast. Congestive heart failure. Hypertension. Lymphed fili. Syncope. Mastectomy, left. Bilateral knee replacement. COMPARISON: [facility] [place], [place] CAROTID ARTERIES, 12/12/2016. . VELOCITY PARAMETERS: ICA/CCA Ratio: Right 1.2 , Left 0.9 ICA: Right 62 cm/sec, Left 48 cm/sec CCA: Right 53 cm/sec, Left 54 cm/sec ECA: Right 45 cm/sec, Left 63 cm/sec Vertebral: Right 44 cm/sec antegrade, Left 54 cm/sec antegrade FINDINGS: Right Carotid: Mild arteriosclerotic plaque is visualized.The waveforms are within normal limits. Left Carotid: No significant plaque is visualized. The waveforms are within normal limits. Other: None. CONCLUSION: 1. Right Internal Carotid Artery: No significant stenosis or atherosclerotic plaque is visualized. 2. Left Internal Carotid Artery: No significant stenosis or atherosclerotic plaque is visualized. Electronically signed by: Momo Nation MD 01/19/2018 3:01 PM EST
--- NOTE | 2018-01-19 15:24 | CT ---
EXAM DATE: 01/19/2018 3:19 PM EST AGE/SEX: 82 years / Female INDICATIONS: Dizziness. Weakness. CLINICAL DATA: This is the patient's initial encounter. Patient reports that signs and symptoms have been present for 1 day and indicates a pain score of 0/10. MEDICAL/SURGICAL HISTORY: Carcinoma, breast. Congestive heart failure. Hypertension. Mastectomy, left. Bilateral knee surgery. RADIATION DOSE: 57.23 CTDI (mGy) COMPARISON: [facility], CT HEAD W/O CONTRAST, 10/27/2017. . TECHNIQUE: CT of the head without contrast. Using automated exposure control and adjustment of the mA and/or kV according to patient size, radiation dose was kept as low as reasonably achievable to ob tain optimal diagnostic quality images. DICOM format image data is available electronically for revi ew and comparison. FINDINGS: There is a punctate lacunar infarct in the basal ganglia on the left. This appears old. The ventricle s are normal in size and configuration. No mass lesion is seen. No acute intracranial hemorrhage is i dentified. The appearance of the posterior fossa is unremarkable. The osseous structures of the skull are intact. The sinuses are clear. The orbits appear intact. CONCLUSION: 1. 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 2. No acute intracranial abnormality identified. . Electronically signed by: Hardeep Gar MD 01/19/2018 3:22 PM EST
--- NOTE | 2018-01-19 16:07 | NM ---
EXAM DATE: 01/19/2018 4:04 PM EST AGE/SEX: 82 years / Female INDICATIONS: Short of breath. CLINICAL DATA: This is the patient's initial encounter. Patient reports that signs and symptoms have been present for 1 day and indicates a pain score of 5/10. MEDICAL/SURGICAL HISTORY: Carcinoma, breast. Congestive heart failure. Hypertension. Mastecto my, left. COMPARISON: [facility], CHEST 1V SINGLE AP, 01/19/2018. [facility], CHEST 1V SINGLE AP, 10/27/2017. . DOSE: 1.5 mCi Tc99m DTPA aerosol 8.1 mCi Tc99m MAA IV TECHNIQUE: Following five minutes of tidal breathing of DTPA aerosol, planar images of the lungs wer e performed in eight projections. The patient was then injected with MAA, and eight-view perfusion s can was performed. FINDINGS: There is a homogeneous pattern of aerosol delivery to the periphery of both lungs. No focal ventilat ory defects are seen. The perfusion lung scan demonstrates a homogenous pattern of uptake in both lungs. No segmental or s ubsegmental defects are seen. There is a matched defect involving the right lung base related to marked elevation of the right cesario diaphragm. CONCLUSION: 1. Low probability for pulmonary embolism. Electronically signed by: Momo Nation MD 01/19/2018 4:06 PM EST
[2018-01-19] MEDS: Sod Chloride 0.9% Inj 1,000 ML IV.CONT SCH (16:28)
[2018-01-19] MEDS: hydrALAZINE 25 MG Tablet PO SCH (16:46)
--- NOTE | 2018-01-19 18:12 | ECG ---
Date Performed: 01/19/2018 Time Performed: 10:19:53 PTAGE: 82 years EKG: SINUS BRADYCARDIA BORDERLINE ECG PREVIOUS TRACING : 10/27/2017 21.26 Since the previous tracing, no significant change noted DOCTOR: Nati Monet Interpretating Date/Time 01/19/2018 18:08:14
[2018-01-19] MEDS: Heparin - SQ 10,000 UNITS/ML Vial SQ SCH (21:29)
[2018-01-20] MEDS: hydrALAZINE 25 MG Tablet PO SCH ×3 (01:29→16:40)
[2018-01-20 06:23] LABS: Potassium 3.5 meq/L (3.5-5.1)
[2018-01-20 06:25] LABS: Calcium 8.3 mg/dL (8.5-10.1)
[2018-01-20 06:26] LABS: Carbon Dioxide 28.6 meq/L (21.0-32.0); Magnesium 2.4 mg/dL (1.5-2.5)
[2018-01-20] MEDS: Sod Chloride 0.9% Inj 1,000 ML IV.CONT SCH ×2 (06:27→10:47)
[2018-01-20] MEDS: Heparin - SQ 10,000 UNITS/ML Vial SQ SCH (08:36)
--- NOTE | 2018-01-20 11:44 | P.PNIM ---
Subjective Interval history: Patient is laying down comfortably without any complaints today. She says she wants to go home Physical Exam Vital signs: Vital Signs 01/19/18 12:59 01/19/18 16:00 01/19/18 17:33 Temperature 96.9 F L Pulse Rate 50 L 51 L 50 L Respiratory Rate 17 Blood Pressure 174/80 H 199/91 H Pulse Oximetry 95 94 L 01/19/18 18:14 01/19/18 20:00 01/20/18 00:00 Temperature 97.2 F L 96.4 F L Pulse Rate 50 L 56 L Respiratory Rate 20 18 Blood Pressure 120/60 121/70 118/57 L Pulse Oximetry 91 L 91 L 01/20/18 04:00 01/20/18 08:00 01/20/18 08:03 Temperature 97.2 F L 96.7 F L Pulse Rate 53 L 58 L 59 L Respiratory Rate 18 20 Blood Pressure 135/74 134/65 Pulse Oximetry 92 L 91 L Intake & Output 01/19/18 01/20/18 01/20/18 18:59 06:59 18:59 Intake Total 600 / 600 420 / 420 Balance 600 / 600 420 / 420 Weight 93 kg 93 kg Intake: IV 600 / 600 NS Inj 500 ML @ 1000 mls/hr IV. 500 / 500 SIG BOLUS SOULEYMANE Rx#:[id number] Rocephin Inj 1,000 MG In NS Inj 100 / 100 100 ML @ 200 mls/hr IV.SIG ONCE ONE Rx#:[id number] Oral 420 / 420 Other: # Voids 1 2 Narrative: General patient in no acute distress HEENT extraocular movements are intact, clear oropharyngeal mucosa, no JVD Cardiovascular S1-S2 audible, RRR, no murmurs rubs or gallops Respiratory clear to auscultation bilaterally Abdomen soft, nontender, nondistended, normal bowel sounds Extremities no edema 2+ distal pulses in bilateral upper and lower extremities, no spinal tenderness. Neuro cranial nerves II through XII intact Results - Labs CBC & Chem 7: 01/19/18 10:10 01/20/18 05:35 Laboratory Results - last 24 hr 01/19/18 01/20/18 12:50 05:35 Puncture Site Right radial Patient Temperature 98.6 O2 Saturation 89 L* ABG pH 7.39 ABG pCO2 45 H ABG pO2 65 ABG HCO3 27 H ABG O2 Content 16.5 ABG Base Excess 2.1 H ABG Methemoglobin 1.3 Julio Test Present Hemoglobin 13.1 Carboxyhemoglobin 1.4 O2 Delivery Device Room air Inspired O2 21 Critical Value Yes Sodium 139 Potassium 3.5 Chloride 104 Carbon Dioxide 28.6 Anion Gap 6 BUN 28 H Creatinine 1.10 H Estimated GFR 47 L Random Glucose 90 Calcium 8.3 L Magnesium 2.4 - Imaging Impressions Carotid Doppler Study 01/19/18 00:00 CONCLUSION: 1. Right Internal Carotid Artery: No significant stenosis or atherosclerotic plaque is visualized. 2. Left Internal Carotid Artery: No significant stenosis or atherosclerotic plaque is visualized. Head CT 01/19/18 00:00 CONCLUSION: 1. 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 2. No acute intracranial abnormality identified. . Pulmonary Perfusion Imaging 01/19/18 13:15 CONCLUSION: 1. Low probability for pulmonary embolism. Assessment and Plan - Plan This patient is an 82-year-old female with a diagnosis of hypertension, congestive heart failure, bilateral knee replacement, breast cancer status post mastectomy and chemotherapy in 1995. The patient has been having presyncopal episodes over the past couple of months. She says that when she ambulates she occasionally feels like her lower extremities are going to give out. She has been seen outpatient for similar symptoms. She denies having any chest pain, no palpitations prior to feeling dizzy. She has not had any episodes while at rest. Patient also admits to urinary frequency. 1. Presyncope concern for arrhythmia The patient presented with the findings mentioned above. CT scan of the head was done which showed an old lacunar infarct. 2D echocardiogram did not show any significant normality's. Ultrasound of the carotids did not show any significant stenosis. EKG shows normal sinus rhythm no acute ST segment or T wave changes. Troponins are negative. Patient is bradycardic with a heart rate of 49. Patient has remained bradycardic with a heart rate in the if these throughout most the hospitalization. Orthostats were positive on admission. Patient states she does not drink much liquids while at home. Patient was advised to stay hydrated. She was seen on IV fluids throughout the hospitalization. I recommended the patient follow-up with her primary care doctor in 1 week. She should also follow-up with her envelope fold operator Dr. Jama in 1 week and be evaluated for a possible Holter monitor or loop recorder placement given her symptoms. She is currently stable and will be discharged home. She will be at home with her daughter who will monitor the patient until she follows up with her doctor next week. As per the patient's daughter they have a scheduled appointment outpatient for an MRI of the spine because she had similar symptoms in the past where she felt like her legs were going to give out. On my examination there are no neurological deficits. She does not have any complaints of back pain or pain near the spine. No tenderness of the spine on palpation. 2. Acute hypoxic respiratory failure Patient was found to be slightly hypoxic in the emergency department. Chest x-rays negative. Patient denies having a cough. VQ scan ordered by the emergency department. Based VQ scan was low probability for PE. ABG shows that the patient is slightly hypoxic. She is currently on room air without any complaints of shortness of breath. She will be discharged home today. 3. Hypertension Patient was started on hydralazine which will be continued on discharge. Losartan was stopped given the patient's low GFR. Her serum creatinine on discharge is 1.2.
[2018-01-20] MEDS ORDERED: amLODIPine 5 MG Tablet PO ONE (12:54)
--- NOTE | 2018-01-20 17:46 | ECHRPT ---
Indication: CVA/TIA CONCLUSIONS The left ventricular systolic function is normal with an estimated ejection fraction in the range of 55-60%. Doppler parameters are consistent with impaired left ventricular relaxtion (grade 1 diastolic dysfun ction). Trace mitral valve regurgitation. Trace aortic valve regurgitation. There is mild tricuspid valve regurgitation. BP: / HR: Rhythm: Sinus MEASUREMENTS (Male / Female) Normal Values Technical Quality:Good 2D ECHO LV Diastolic Diameter PLAX 4.2 cm 4.2 - 5.9 / 3.9 - 5.3 cm LV Systolic Diameter PLAX 2.9 cm IVS Diastolic Thickness 1.1 cm 0.6 - 1.0 / 0.6 - 0.9 cm LVPW Diastolic Thickness 1.1 cm 0.6 - 1.0 / 0.6 - 0.9 cm LV Relative Wall Thickness 0.5 LVOT Diameter 1.9 cm LA Systolic Diameter LX 3.4 cm 3.0 - 4.0 / 2.7 - 3.8 cm LV Ejection Fraction MOD 4C 60.6 % LV Ejection Fraction 4C AL 61.7 % M-MODE Aortic Root Diameter MM 1.7 cm AV Cusp Separation MM 1.5 cm DOPPLER AV Peak Velocity 140.0 cm/s AV Peak Gradient 7.8 mmHg AI Peak Velocity 267.5 cm/s AI Peak Gradient 28.6 mmHg AI Pressure Half Time 624.0 ms LVOT Peak Velocity 84.4 cm/s LVOT Peak Gradient 2.8 mmHg AV Area Cont Eq pk 1.7 cm MV Area PHT 2.5 cm Mitral E Point Velocity 42.4 cm/s Mitral A Point Velocity 89.3 cm/s Mitral E to A Ratio 0.5 TR Peak Velocity 261.0 cm/s TR Peak Gradient 27.2 mmHg Right Atrial Pressure 10.0 mmHg Pulmonary Artery Systolic Pressu 37.2 mmHg Right Ventricular Systolic Press 37.2 mmHg PV Peak Velocity 90.9 cm/s PV Peak Gradient 3.3 mmHg FINDINGS LEFT VENTRICLE The left ventricular systolic function is normal with an estimated ejection fraction in the range of 55-60%. Normal left ventricular size. Wall thickness is normal. No regional wall motion abnormalities are present. Doppler parameters are consistent with impaired left ventricular relaxtion (grade 1 diastolic dysfun ction). Nonobstructive prominent basal hypertrophy is present consistent with sigmoid septum. RIGHT VENTRICLE Normal right ventricular size and systolic function. LEFT ATRIUM The left atrial size is normal. RIGHT ATRIUM The right atrial size is normal. ATRIAL SEPTUM Normal atrial septal thickness without atrial level shunting by limited color doppler interrogation. AORTA The aortic root and proximal ascending aorta are normal in size on limited imaging. MITRAL VALVE Mild thickening of the mitral valve leaflets. Trace mitral valve regurgitation. No mitral valve stenosis. AORTIC VALVE Trileaflet aortic valve. Aortic valve sclerosis is present. Trace aortic valve regurgitation. No aortic valve stenosis. TRICUSPID VALVE Mild thickening of the tricuspid valve leaflets. There is mild tricuspid valve regurgitation. The estimated pulmonary arterial pressure is 37.2 mmHg. PULMONARY VALVE No pulmonary valve regurgitation or stenosis. VESSELS The inferior vena cava is normal in size. PERICARDIUM No pericardial effusion. Dani Tena DO (Electronically Signed) Final Date:20 January 2018 17:45
[2018-01-21] MEDS ORDERED: Nitrofurantoin Monohydrate-Macrocrystal 100 MG Capsule PO SCH (09:00)
== END 2018-01-20 19:49 | disposition home or self-care (01) ==
LOC: PHED 09:20 → PHEDA 09:20 → PH3 13:50
PROVIDERS: ADMIT Hospitalist; ATTEND Hospitalist
DX: Z86.73 Personal history of transient ischemic attack (TIA), and cerebral infarction without residual deficits; J96.01 Acute respiratory failure with hypoxia; Z96.653 Presence of artificial knee joint, bilateral; I11.0 Hypertensive heart disease with heart failure; Z85.3 Personal history of malignant neoplasm of breast; Z87.891 Personal history of nicotine dependence; N39.0 Urinary tract infection, site not specified; Z79.82 Long term (current) use of aspirin; I50.9 Heart failure, unspecified; E78.5 Hyperlipidemia, unspecified; Z92.21 Personal history of antineoplastic chemotherapy; Z90.10 Acquired absence of unspecified breast and nipple; I63.81 Other cerebral infarction due to occlusion or stenosis of small artery